=== PATIENT | female | born 1955 | race Caucasian/White ===

== ENCOUNTER 2020-04-01 08:51 | Outpatient (REF) | payer MEDICARE, MEDICAID, SELFPAY | END 2020-04-01 08:52 | disposition home or self-care (01) | LOC: HO.BBR 08:51 | PROVIDERS: PCP Internal Medicine; Visit Provider Internal Medicine Medical Oncology | DX: D75.1 Secondary polycythemia (principal) | CPT/HCPCS: 85018; 99195 ==

== ENCOUNTER 2020-05-03 08:52 | Outpatient (REF) | payer MEDICARE, MEDICAID, SELFPAY | END 2020-05-03 08:53 | disposition home or self-care (01) | LOC: HO.BBR 08:52 | PROVIDERS: PCP Internal Medicine; Visit Provider Internal Medicine Medical Oncology | DX: D75.1 Secondary polycythemia (principal) | CPT/HCPCS: 85018; 99195 ==

== ENCOUNTER 2020-06-02 08:46 | Outpatient (REF) | payer MEDICARE, MEDICAID, SELFPAY ==
[2020-06-02 09:26] LABS: MANUAL DIFF FLAG NO
[2020-06-02 09:32] LABS: Basophils Absolute Auto 0.1 X10*3/uL (0.0-0.2); Basophils Percent Auto 1.6 % (0-2); Eosinophils Percent Auto 0.5 % (0-4); Hematocrit 42.4 % (37-47); Hemoglobin 13.8 g/dl (12.0-16.0); Imm Gran Abs Auto 0.01 X10*3/uL (0.00-0.03); Imm Gran Pct Auto 0.2 % (0.0-0.4); Lymphocytes Absolute Auto 1.1 X10*3/uL (1.2-4.9); Lymphocytes Percent Auto 24.8 % (20-40); Mean Corpuscular HGB Conc 32.5 g/dl (31.0-35.0); Mean Corpuscular Hemoglobin 30.3 pg (27.0-33.0); Mean Platelet Volume 10.7 fL (9.4-12.3); Monocytes Absolute Auto 0.5 X10*3/uL (0.1-1.2); Monocytes Percent Auto 10.4 % (2-11); Neutrophils Absolute Auto 2.7 X10*3/uL (2.0-8.3); Neutrophils Percent Auto 62.5 % (45-73); Platelet Count 258 X10*3/uL (160-400); Red Blood Count 4.56 X10*6/uL (4.20-5.50); Red Cell Distribution Width 12.6 % (11.0-16.0); White Blood Count 4.3 X10*3/uL (4.8-10.8)
[2020-06-02 10:02] LABS: Alanine Aminotransferase 11 U/L (0-31); Albumin Level 3.7 g/dL (3.5-5.0); Alkaline Phosphatase 72 U/L (39-117); Anion Gap 11 (12-20); Aspartate Amino Transferase 17 U/L (5-31); Bilirubin Total 0.3 mg/dL (0.0-1.0); Blood Urea Nitrogen 20 mg/dL (9-16); Calcium 8.8 mg/dL (8.4-10.2); Carbon Dioxide 29 mmol/L (22-29); Chloride 103 mmol/L (96-108); Estimated Glomerular Filt Rate > 60; Glucose Random 79 mg/dL (60-115); Sodium 138 mmol/L (135-145); Total Protein 6.8 g/dL (6.5-8.0)
== END 2020-06-02 08:47 | disposition home or self-care (01) ==
LOC: HO.BBR 08:46
PROVIDERS: Visit Provider Internal Medicine Medical Oncology
DX: D75.1 Secondary polycythemia (principal)
CPT/HCPCS: 36415; 80053; 85014; 85018; 85025; 99195

== ENCOUNTER 2020-07-08 09:16 | Outpatient (REF) | payer MEDICARE, MEDICAID, SELFPAY | END 2020-07-08 09:17 | disposition home or self-care (01) | LOC: HO.BBR 09:16 | PROVIDERS: Visit Provider Internal Medicine Medical Oncology | DX: D75.1 Secondary polycythemia (principal) | CPT/HCPCS: 85014; 85018; 99195 ==

== ENCOUNTER 2020-08-15 12:14 | Emergency (ER) | payer MEDICARE, MEDICAID, SELFPAY ==
--- NOTE | ~2020-08-15 | XR_ITS ---
EXAMINATION: XR HAND, RIGHT CLINICAL INFORMATION: Dog bite. COMPARISON: None TECHNIQUE: PA, lateral, and oblique views of the right hand. FINDINGS: There is a 3 mm linear ossification adjacent to medial base first proximal phalanx, possible cortical avulsion of indeterminate age. There is no gas in the soft tissues or soft tissue swelling in this area. This may be correlated with patient's symptoms and clinical exam. There is subtle irregularity cortex lateral base proximal shaft index finger proximal phalanx. There may be a dressing adjacent to this area. Finding could represent impaction injury. There is no radiolucent fracture line or periostitis or destructive process. No gas tracking in soft tissues. No radiopaque soft tissue foreign body. The lateral view shows detached corticated dorsal spur fourth finger distal phalanx without overlying soft tissue swelling, likely chronic. The remainder of the bony structures are unremarkable. There is no acute or healing fracture or dislocation or destructive process. No periostitis. XR/XR hand RT min 3V IMPRESSION: 1. Fine linear cortical avulsion of indeterminate age medial base first proximal phalanx. 2. Suspect cortical impaction injury lateral aspect index finger proximal phalanx. 3. Because corticated spur dorsal base fourth finger distal phalanx, likely chronic.
--- NOTE | 2020-08-15 12:22 | ED.ANIMALBIT ---
HPI - Animal Bite General Chief Complaint: Animal Bite Stated Complaint: DOG BITE Time Seen by Provider: 08/15/20 12:22 Source: patient and EMS Mode of arrival: EMS Limitations: no limitations History of Present Illness HPI narrative: 64 y/o female with history of COPD, HLD, active smoker who presents to the ER today via EMS with a multiple dog bites. She states she was at a gas station when she was attacked by a pit bull that got loose out of a car from [place]. She put up her right hand to protect her face and the dog bit her hand and shook his head. She was able to get free and then he bit onto her right lower leg. Police were on scene. 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 She reports hand pain and lower leg pain. She is able to make a fist and move all of her fingers. She has multiple small superficial lesions on her right hand, 1 deep puncture wound and superficial lacerations to right lower leg. She does not know when her last Tdap was. MD complaint: animal bite Onset (ago): hour(s) (1) Animal: dog Description of animal: household pet Mechanism: bite Location - Extremities: right: hand (proximal 1st digit w/ puncture wound) and lower leg (lateral lower leg) Pain description: other (aching and sore ) Severity scale (1-10): 6 Context: unprovoked Associated symptoms: bleeding Treatments prior to arrival: wound dressing(s) Related Data Patient tetanus UTD: No Home Medications Medication Instructions Recorded Confirmed buspirone 0.5 tab PO BID 05/30/20 06/14/20 levothyroxine 1 tab PO DAILY 05/30/20 06/14/20 umeclidinium-vilanterol [Anoro 1 puff PO DAILY 05/30/20 06/14/20 Ellipta] Previous Rx's Medication Instructions Recorded pravastatin 20 mg tablet 20 mg PO DAILY #90 tab 05/04/20 pregabalin 200 mg capsule 200 mg PO BID #180 cap 05/04/20 duloxetine 60 mg capsule,delayed 60 mg PO DAILY #90 cap 06/21/20 release omeprazole 20 mg capsule,delayed 20 mg PO DAILY #90 cap 06/21/20 release trazodone 300 mg tablet 300 mg PO BEDTIME #90 tab 07/20/20 amoxicillin-pot clavulanate 1 tab PO Q12H #10 tab 08/15/20 [Augmentin] ibuprofen 600 mg PO Q8H PRN #20 tab 08/15/20 Allergies Allergy/AdvReac Type Severity Reaction Status Date / Time Codeine Phosphate Allergy Unknown flushed Verified 05/23/20 15:07 codeine [Codeine] AdvReac Mild VOMITING/RA Unverified 03/17/20 14:41 Review of Systems Review of Systems: Constitutional: No Fever, No Chills Cardiovascular: No Chest Pain, No SOB Respiratory: + Cough (chronic), No Sputum Gastrointestinal: No Nausea, No Vomiting Musculoskeletal: + joint pain, No Myalgias Skin: + Skin Lesions, No rash Neuro: No Weakness, No Numbness Psych: + Anxiety/Panic, No Depression Heme/Lymph: + Bruising, No Lymphadenopathy PMFSH Past Medical History Attestation statement: The following information was validated with the patient. Medical History Carpal tunnel syndrome of right wrist Constipation COPD (chronic obstructive pulmonary disease) Depression with anxiety Fibromyalgia Graves disease Hyperlipidemia Hypothyroidism Insomnia Mammogram normal Polycythemia PTSD (post-traumatic stress disorder) Tobacco dependency Warthin's tumor Surgical History (Updated 05/30/20 @ 11:33 by Andre Veliz MD) H/O colonoscopy History of total hysterectomy S/P STEPHANI-BSO Family History Family History (Updated 05/23/20 @ 15:18 by Jenny Cassidy, RMA, [facility]) Father Cancer Mother Stroke CAD (coronary artery disease) Brother No problems noted. Social History Social History (Updated 05/30/20 @ 11:29 by Tigist Gonzalez) Alcohol intake: former Smoking Status: Current every day smoker Cigarettes Per Day: 5 Smoked in Last 30 Days: Yes Use of substances other than those prescribed or required for medical reasons: No Advance Directives: No Advance Directives Information Provided: No Physical Exam Vital Signs: Vital Signs: Last Vital Signs Temp 97.2 F 08/15/20 12:27 Pulse 77 08/15/20 12:27 Resp 16 08/15/20 12:27 BP 130/61 08/15/20 12:27 Pulse Ox 96 08/15/20 12:27 Body Mass Index 26.3 Appearance: Alert. Oriented X3. No acute distress. HEENT: normal inspection Respiratory: No respiratory distress. Congested cough Skin: Skin warm and dry. Normal skin color. Normal skin turgor. No rashes. 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 <1 cm puncutre wound on dorsal aspect of right hand between proximal index and middle finger. RLE with eccymosis and superficial lacerations to right lateral lower leg. No bony tenderness, no ankle involvement. Neuro: Oriented X 3. No motor deficit. No sensory deficit. Normal gait. Course Course Course Narrative: 64 y/o female presenting with multiple dog bites from unprovoked pit bull. Will get hand XR for further evaluation, loosely suture deep puncture wound, give Tdap and pain control here. Wound have been extensively cleaned with soap and water, betadine and irrigated. Reevaluation(s) Reevaluation #1: XR showing Fine linear cortical avulsion of indeterminate age medial base first proximal phalanx. 2. Suspect cortical impaction injury lateral aspect index finger proximal phalanx. Will place in finger splint and refer to ortho. Discussed Rabies vaccination with the patient and she would like to hold off for now and confirm with Animal Control that the dog is infact up to date on shots. If it is not then she will come back later today and get Rabies vaccine. Discharge Plan Discharge Clinical Impression: Dog bite Qualifiers: Encounter type: initial encounter Qualified Code(s): W54.0XXA - Bitten by dog, initial encounter Patient Disposition: Home, Self-Care Instructions: Animal Bite (ED), Finger Fracture (ED) Additional Instructions: X-ray shows a tiny avulsion fracture at the base of your inde finger on your right hand. Wear the finger splint to allow healing. Limit use of this finger. Follow up with Orthopedics in 1 week. Take the antibiotic as directed to help prevent infection. Recommend topical triple antibiotic ointment to the wounds 2 times per day. Keep clean and covered with a sterile dressing. Monitor for signs of infection including redness, swelling, drainage of pus. Come back to the ER or see your doctor in 10 days to remove the stitch in your hand. Do not get your hand wet today. After 24 hours you can briefly wash with soap and water, then pat dry. Use ice several times per day as needed for pain and swelling. Take Tylenol and/or Motrin as needed for pain. If you find out that the dog not not up to date on his vaccines come back to the ER within 24 hours to start Rabies vaccination process. Prescriptions: New amoxicillin-pot clavulanate [Augmentin] 875-125 mg tablet 1 tab PO Q12H Qty: 10 RF: 0 ibuprofen 600 mg tablet 600 mg PO Q8H PRN (Reason: pain) Qty: 20 RF: 0 No Action pregabalin 200 mg capsule 200 mg PO BID Qty: 180 RF: 1 pravastatin 20 mg tablet 20 mg PO DAILY Qty: 90 RF: 3 duloxetine 60 mg capsule,delayed release(DR/EC) 60 mg PO DAILY Qty: 90 RF: 3 omeprazole 20 mg capsule,delayed release(DR/EC) 20 mg PO DAILY Qty: 90 RF: 3 trazodone 300 mg tablet 300 mg PO BEDTIME Qty: 90 RF: 3 buspirone 10 mg tablet 0.5 tab PO BID RF: 0 levothyroxine 112 mcg tablet 1 tab PO DAILY RF: 0 Anoro Ellipta 62.5-25 mcg/actuation blister with device 1 puff PO DAILY RF: 0 Referrals: Fernando Patricia MD [Physician] - 1 week (finger fracture)
[2020-08-15 12:27] VITALS: BP 130/61; BP 132/60; PULSE 77; PULSE 80; RESP 16; TEMP 36.2; O2SAT 96; BMI 26.3
[2020-08-15] MEDS: Acetaminophen 325 MG TABLET 975 MG PO (12:52)
[2020-08-15] MEDS: Amoxicillin/Potassium Clav 875 MG TABLET PO (12:53)
[2020-08-15] MEDS: Ibuprofen 600 MG TABLET PO (12:53)
[2020-08-15] MEDS: Lidocaine HCl 2 % MPF 5 ML VIAL INFILTRATI (12:54)
== END 2020-08-15 14:28 | disposition home or self-care (01) ==
LOC: HO.ED 12:37
PROVIDERS: Emergency Provider Emergency Medicine; PCP Internal Medicine
DX: S62.610A Displaced fracture of proximal phalanx of right index finger, initial encounter for closed fracture (principal); S61.451A Open bite of right hand, initial encounter; S80.871A Other superficial bite, right lower leg, initial encounter; W54.0XXA Bitten by dog, initial encounter; Y93.89 Activity, other specified; Y92.524 Gas station as the place of occurrence of the external cause; Y99.9 Unspecified external cause status
CPT/HCPCS: 12001; 29130; 73130; 90471; 90715; 99283; 99284

== ENCOUNTER 2020-08-18 09:51 | Outpatient (REF) | payer MEDICARE, MEDICAID, SELFPAY | END 2020-08-18 09:52 | disposition home or self-care (01) | LOC: HO.BBR 09:51 | PROVIDERS: Visit Provider Internal Medicine Medical Oncology | DX: D75.1 Secondary polycythemia (principal) | CPT/HCPCS: 36415; 85014; 85018; 99195 ==

== ENCOUNTER → 2020-08-19 09:13 | Outpatient (BNVA) | payer MEDICARE, MEDICAID, SELFPAY | PROVIDERS: PCP Internal Medicine; Visit Provider Physician Assistant | DX: Z13.89 Encounter for screening for other disorder (principal) | CPT/HCPCS: 99202 ==

== ENCOUNTER 2020-09-15 08:44 | Outpatient (REF) | payer MEDICARE, MEDICAID, SELFPAY | END 2020-09-15 08:45 | disposition home or self-care (01) | LOC: HO.BBR 08:44 | PROVIDERS: Visit Provider Internal Medicine Medical Oncology | DX: D75.1 Secondary polycythemia (principal) | CPT/HCPCS: 85014; 85018; 99195 ==

== ENCOUNTER 2020-09-30 08:25 | Outpatient (REF) | payer MEDICARE, MEDICAID, SELFPAY ==
--- NOTE | ~2020-09-30 | XR_ITS ---
EXAMINATION: XR HAND, RIGHT CLINICAL INFORMATION: Fracture COMPARISON: Previous x-ray August 2020 TECHNIQUE: PA, lateral, and oblique views of the right hand. FINDINGS: There is question evulsion fracture of the base of the proximal phalanx of the thumb and appears unchanged. There is an area of lucency and sclerosis in the radial side of the proximal phalanx of the second finger questionable for changes related to trauma. No other fracture is seen. There is arthritis at the first LONG-TERM joint and fourth DIP joint. Joint spaces are otherwise normal. Soft tissues are normal. XR/XR hand RT min 3V IMPRESSION: No change in small avulsion fracture of the base of the proximal phalanx of the thumb and injury to the base of the proximal phalanx of the second finger from August 2020 exam.
== END 2020-09-30 08:26 | disposition home or self-care (01) ==
LOC: HO.HOSX 08:25
PROVIDERS: Visit Provider Physician Assistant
DX: S62.630D Displaced fracture of distal phalanx of right index finger, subsequent encounter for fracture with routine healing (principal)
CPT/HCPCS: 73130; 99212

== ENCOUNTER 2020-10-19 09:48 | Outpatient (REF) | payer MEDICARE, MEDICAID, SELFPAY | END 2020-10-19 09:49 | disposition home or self-care (01) | LOC: HO.BBR 09:48 | PROVIDERS: Visit Provider Internal Medicine Medical Oncology | DX: D75.1 Secondary polycythemia (principal) | CPT/HCPCS: 85018 ==

== ENCOUNTER → 2020-12-09 09:59 | Outpatient (BNV) | payer MEDICARE, MEDICAID, SELFPAY | PROVIDERS: Visit Provider Internal Medicine Medical Oncology | DX: D75.1 Secondary polycythemia (principal); I82.401 Acute embolism and thrombosis of unspecified deep veins of right lower extremity; Z79.01 Long term (current) use of anticoagulants; F17.210 Nicotine dependence, cigarettes, uncomplicated | CPT/HCPCS: 99212; 99213; 99214; G2252 ==

== ENCOUNTER 2021-02-27 09:33 | Outpatient (REF) | payer MEDICARE, MEDICAID, SELFPAY ==
[2021-02-27 11:01] LABS: MANUAL DIFF FLAG NO
[2021-02-27 11:17] LABS: Basophils Absolute Auto 0.1 X10*3/uL (0.0-0.2); Basophils Percent Auto 1.1 % (0-2); Eosinophils Percent Auto 0.5 % (0-4); Hematocrit 42.2 % (37-47); Hemoglobin 13.1 g/dl (12.0-16.0); Imm Gran Abs Auto 0.01 X10*3/uL (0.00-0.03); Imm Gran Pct Auto 0.2 % (0.0-0.4); Lymphocytes Absolute Auto 1.5 X10*3/uL (1.2-4.9); Lymphocytes Percent Auto 27.3 % (20-40); Mean Corpuscular Hemoglobin 24.8 pg (27.0-33.0); Mean Corpuscular Volume 79.9 fL (80-98); Mean Platelet Volume 11.4 fL (9.4-12.3); Monocytes Absolute Auto 0.6 X10*3/uL (0.1-1.2); Monocytes Percent Auto 10.1 % (2-11); Neutrophils Absolute Auto 3.3 X10*3/uL (2.0-8.3); Neutrophils Percent Auto 60.8 % (45-73); Platelet Count 273 X10*3/uL (160-400); Red Blood Count 5.28 X10*6/uL (4.20-5.50); Red Cell Distribution Width 19.7 % (11.0-16.0); White Blood Count 5.5 X10*3/uL (4.8-10.8)
[2021-02-27 11:54] LABS: Alanine Aminotransferase 15 U/L (0-31); Albumin Level 3.9 g/dL (3.5-5.0); Alkaline Phosphatase 83 U/L (39-117); Anion Gap 14 (12-20); Aspartate Amino Transferase 20 U/L (5-31); Bilirubin Total 0.2 mg/dL (0.0-1.0); Blood Urea Nitrogen 12 mg/dL (9-16); Calcium 9.1 mg/dL (8.4-10.2); Carbon Dioxide 26 mmol/L (22-29); Chloride 103 mmol/L (96-108); Cholesterol 186 mg/dL; Estimated Glomerular Filt Rate 57; Glucose Fasting 94 mg/dL (60-99); HDL Cholesterol 47 mg/dL; LDL Cholesterol Calculated 117 mg/dl; Potassium 4.9 mmol/L (3.3-5.1); Sodium 138 mmol/L (135-145); Total Protein 7.1 g/dL (6.5-8.0); Triglycerides 112 mg/dL
[2021-02-27 11:57] LABS: TSH reflex Free T4 0.78 uIU/mL (0.32-4.0)
== END 2021-02-27 09:34 | disposition home or self-care (01) ==
LOC: HO.HMGCLDS 09:33
PROVIDERS: PCP Internal Medicine; Visit Provider Internal Medicine Medical Oncology
DX: D75.1 Secondary polycythemia (principal); E03.9 Hypothyroidism, unspecified; E78.5 Hyperlipidemia, unspecified
CPT/HCPCS: 36415; 80053; 80061; 84443; 85025

== ENCOUNTER 2021-05-01 12:47 | Outpatient (REF) | payer MEDICARE, MEDICAID, SELFPAY ==
--- NOTE | ~2021-05-01 | CT_ITS ---
EXAMINATION: CT CHEST SCREENING CLINICAL INFORMATION: 47 pack year history. Current smoker. COMPARISON: Previous chest CT scans most recent December 2019 TECHNIQUE: Multidetector volumetric CT imaging of the chest is performed without contrast using low dose technique. Additional 2D coronal and sagittal reformatted images and axial 3D maximum intensity projection (MIP) images are generated on the CT workstation. This CT examination was performed using dose optimization techniques as appropriate, variously including the following: *Automated exposure control *Adjustment of mA and/or kV according to patient size (this includes techniques or standardized protocols for targeted exams where dose is matched to indication/reason for exam; i.e. extremities or head) *Use of iterative reconstruction technique DLP: 78 mGy-cm FINDINGS: LUNGS: There is evidence of mild paraseptal emphysema. There are increased peripheral interstitial markings and peripheral attenuation questionable for mild interstitial lung disease. This is unchanged. There are small pulmonary nodules or micronodules that appear unchanged. The largest measures 3 mm adjacent left pleural fissure axial 250 series 5. No new pulmonary nodule is seen. There is subsegmental atelectasis at the lung bases. MEDIASTINUM: There is a small esophageal hernia. This probably represents a hiatal hernia. The mediastinum is otherwise normal. PLEURA: There is no pleural effusion. There is fatty area of the left posterior costophrenic angle questionable for eventration of the left hemidiaphragm versus small diaphragmatic hernia containing fat. AXILLA: No lymphadenopathy. UPPER ABDOMEN: Unremarkable OSSEOUS STRUCTURES: There are degenerative changes of the spine. CT/CT lung screening IMPRESSION: Mild emphysema. Stable small pulmonary nodules. ASSESSMENT: Lung-RADS category 2: Benign RECOMMENDATION: Annual low-dose chest CT follow-up recommended.
== END 2021-05-01 12:48 | disposition home or self-care (01) ==
LOC: HO.CT 12:47
PROVIDERS: Visit Provider Physician Assistant Medical
DX: Z12.2 Encounter for screening for malignant neoplasm of respiratory organs (principal); Z87.891 Personal history of nicotine dependence
CPT/HCPCS: 71271

== ENCOUNTER 2021-05-08 14:15 | Emergency (ER) | payer MEDICARE, MEDICAID, SELFPAY ==
--- NOTE | ~2021-05-08 | CT_ITS ---
EXAMINATION: CT ANGIOGRAM OF THE CHEST WITH AND WITHOUT CONTRAST (CT PULMONARY ANGIOGRAM FOR PE) CLINICAL INFORMATION: Reason for Exam syncope. PE? COMPARISON: CT 05/01/2021 TECHNIQUE: Prior to contrast administration, noncontrast localization images were obtained. Subsequently, multidetector volumetric imaging was performed from the thoracic inlet to below the diaphragms following the administration of 75 mL Omnipaque 350 intravenous contrast. No contrast reaction reported Sagittal, coronal, and MIP oblique sagittal reformatted images were obtained on the CT workstation, uploaded to PACS, and reviewed. This CT examination was performed using dose optimization techniques as appropriate, variously including the following: *Automated exposure control *Adjustment of mA and/or kV according to patient size (this includes techniques or standardized protocols for targeted exams where dose is matched to indication/reason for exam; i.e. extremities or head) *Use of iterative reconstruction technique Total exam dose-length product 271 mGy-cm FINDINGS: QUALITY OF STUDY/CONTRAST BOLUS: Suboptimal. There is extensive motion artifact and contrast under filling of the distal pulmonary arteries. PULMONARY ARTERIES: No central pulmonary embolus. Motion artifact limits evaluation for segmental and subsegmental pulmonary emboli but none are seen. THORACIC AORTA: No aneurysm or dissection. Mild irregular calcified and noncalcified atherosclerotic changes, for example in the distal thoracic aorta, image 323/500. LUNG: Motion artifact. There is central bronchial wall thickening. Atelectasis. No focal consolidation or mass. PLEURA: No pleural effusion or pneumothorax. MEDIASTINUM: Normal heart size. No pericardial effusion. No hilar or mediastinal lymphadenopathy. No evidence of septal bowing or right heart strain. CHEST WALL/AXILLA: No axillary or internal mammary lymphadenopathy. OSSEOUS STRUCTURES: No acute or suspicious osseous abnormality. UPPER ABDOMEN: Small hiatal hernia. There is some reflux of contrast suggesting elevated right heart pressures. CT/CT angio chest PE protocol IMPRESSION: Limited study due to motion artifact. No central pulmonary embolus seen. Central bronchial wall thickening. VTE: negative
--- NOTE | ~2021-05-08 | CT_ITS ---
EXAMINATION: CT HEAD WITHOUT CONTRAST CT CERVICAL SPINE WITHOUT CONTRAST CLINICAL INFORMATION: Syncope. COMPARISON: CT cervical spine dated from 10/16/2018. TECHNIQUE: Contiguous axial imaging was performed from the skull base to vertex without intravenous administration of contrast. Contiguous axial imaging was performed from the upper chest through the skull base without intravenous administration of contrast. Coronal and sagittal reformats were obtained at the acquisition workstation. This CT examination was performed using dose optimization techniques as appropriate, variously including the following: *Automated exposure control *Adjustment of mA and/or kV according to patient size (this includes techniques or standardized protocols for targeted exams where dose is matched to indication/reason for exam; i.e. extremities or head) *Use of iterative reconstruction technique DLP: 255 mGy-cm FINDINGS: Head: There is no evidence of acute intracranial hemorrhage or edematous territorial infarction. There is no abnormal attenuation within the brain parenchyma. Ocasio-white matter differentiation is preserved. The ventricles are normal in size and configuration. No evidence for obstructive hydrocephalus. No abnormal mass effect or midline shift. No extra-axial fluid collections. Very mild soft tissue thickening/contusion in the right parietal scalp on image 56 of series 13. No acute osseous abnormalities. The mastoid air cells and paranasal sinuses are clear. Cervical Spine: The atlantooccipital and atlantoaxial articulations remain well aligned. Straightening of the normal cervical lordosis. Otherwise, there is anatomic alignment of the vertebral bodies and posterior elements. No evidence of acute fracture or subluxation. Mild multilevel cervical spondylosis with disc space narrowing and prominent anterior osteophytes. There is no prevertebral soft tissue swelling. Indeterminate surgical clips are identified in the cervical soft tissues and parotid regions bilaterally. The remaining cervical soft tissues are normal in appearance. The thyroid gland is markedly atrophic versus surgically removed. The lung apices demonstrate mild right paraseptal emphysema and right apical pleural thickening/scarring. CT/CT cervical spine wo con IMPRESSION: No acute intracranial pathology. No acute cervical traumatic sequela. Mild cervical spondylosis. Indeterminate postsurgical changes in the soft tissues of the neck bilaterally with multiple surgical clips. Correlate with prior surgical history.
[2021-05-08 14:34] VITALS: BP 119/72; PULSE 76; RESP 17; TEMP 36.4; O2SAT 95; BMI 28.5
--- NOTE | 2021-05-08 14:41 | ECG_ITS ---
Test Reason : Syncope Blood Pressure : / mmHG Vent. Rate : 077 BPM Atrial Rate : 077 BPM P-R Int : 174 ms QRS Dur : 080 ms QT Int : 384 ms P-R-T Axes : 073 015 048 degrees QTc Int : 434 ms Normal sinus rhythm RSR' or QR pattern in V1 suggests right ventricular conduction delay Otherwise normal ECG No previous ECGs available Referred By: Generic ED Physician Electronically Signed By:BRUNO ISSA MD
[2021-05-08 16:31] LABS: MANUAL DIFF FLAG NO
[2021-05-08 16:33] LABS: Basophils Absolute Auto 0.1 X10*3/uL (0.0-0.2); Basophils Percent Auto 1.2 % (0-2); Eosinophils Absolute Auto 0.1 X10*3/uL (0.0-0.4); Eosinophils Percent Auto 1.6 % (0-4); Hematocrit 40.3 % (37.0-47.0); Hemoglobin 12.8 g/dl (12.0-16.0); Imm Gran Abs Auto 0.01 X10*3/uL (0.00-0.03); Imm Gran Pct Auto 0.2 % (0.0-0.4); Lymphocytes Absolute Auto 2.2 X10*3/uL (1.2-4.9); Lymphocytes Percent Auto 44.6 % (20-40); Mean Corpuscular HGB Conc 31.8 g/dl (31.0-35.0); Mean Corpuscular Hemoglobin 26.4 pg (27.0-33.0); Mean Corpuscular Volume 83.1 fL (80.0-98.0); Mean Platelet Volume 10.7 fL (9.4-12.3); Monocytes Absolute Auto 0.5 X10*3/uL (0.1-1.2); Monocytes Percent Auto 10.8 % (2-11); Neutrophils Absolute Auto 2.1 x10*3/uL (2.0-8.3); Neutrophils Percent Auto 41.6 % (45-73); Platelet Count 280 X10*3/uL (160-400); Red Blood Count 4.85 X10*6/uL (4.20-5.50); Red Cell Distribution Width 16.7 % (11.0-16.0)
[2021-05-08 16:50] LABS: Anion Gap 12 (12-20); Blood Urea Nitrogen 13 mg/dL (9-16); Carbon Dioxide 26 mmol/L (22-29); Chloride 105 mmol/L (96-108); Creatinine Clr Calc Pharmacy 60.5; Estimated Glomerular Filt Rate 53; Glucose Random 89 mg/dL (60-115); Potassium 4.4 mmol/L (3.3-5.1); Sodium 139 mmol/L (135-145)
[2021-05-08 16:57] LABS: Troponin-I High Sensitivity < 3.5 ng/L (<3.5-17.0)
[2021-05-08 19:59] VITALS: BP 111/48; PULSE 64
[2021-05-08 20:00] VITALS: BP 101/54; BP 126/63; PULSE 72; PULSE 75
[2021-05-08] MEDS: iohexoL 350 MG/ML 100 ML INFUS..BTL IV (20:39)
--- NOTE | 2021-05-08 21:04 | ED.SYNCOPE ---
HPI - Syncope General Chief Complaint: Syncope Stated Complaint: passing out hit head on chair on blood thinners Time Seen by Provider: 05/08/21 19:43 History of Present Illness HPI narrative: Patient presents to ED for evaluation. Patient had a syncopal episode on Saturday which caused her to hit her head. Patient states she was sent by PCP for evaluation. Patient states she has been asymptomatic since syncopal episode this past Saturday. Patient will like to be discharged immediately but was agreeable to get evaluated medically. Presently patient denies any chest pain, shortness of breath, abdominal pain, dizziness, neck pain, headache, coughing up blood, vomiting blood, blood in stool, back pain, or any pain in extremities. Patient states she has known DVT in right lower extremity. Patient is on Eliquis for the past 3 weeks. Related Data Previous Rx's Medication Instructions Recorded pravastatin 20 mg tablet 20 mg PO DAILY #90 tab 05/04/20 pregabalin 200 mg capsule 200 mg PO BID #180 cap 05/04/20 duloxetine 60 mg capsule,delayed 60 mg PO DAILY #90 cap 06/21/20 release omeprazole 20 mg capsule,delayed 20 mg PO DAILY #90 cap 06/21/20 release trazodone 300 mg tablet 300 mg PO BEDTIME #90 tab 07/20/20 ibuprofen 600 mg tablet 600 mg PO Q8H PRN #20 tab 08/15/20 levothyroxine 112 mcg tablet 112 mcg PO DAILY #90 tab 09/21/20 buspirone 10 mg tablet 10 mg PO BID #180 tab 10/24/20 apixaban 5 mg tablet (Eliquis) 5 mg PO BID #180 tab 04/12/21 umeclidinium 62.5 mcg-vilanterol 1 ea PO DAILY #180 ea 04/13/21 25 mcg/actuation powdr for inhalation (Anoro Ellipta) Allergies Allergy/AdvReac Type Severity Reaction Status Date / Time Codeine Phosphate Allergy Unknown flushed Verified 04/27/21 12:40 codeine [Codeine] AdvReac Mild VOMITING/RA Verified 04/27/21 12:40 SH Review of Systems Review of Systems: Yes all other systems are reviewed and are negative Constitutional: Constitutional: Reports as per HPI and Reports no additional constitutional complaints Eyes: Eyes: Reports as per HPI and Reports no additional eye complaints ENT: Reports system reviewed and no additional complaints, except as documented and Reports as per HPI Cardiovascular: Cardiovascular: Reports as per HPI and Reports no additional cardiovascular complaints Respiratory: Respiratory: Reports as per HPI and Reports no additional respiratory complaints Gastrointestinal: Gastrointestinal: Reports as per HPI and Reports no additional gastrointestinal complaints Genitourinary: Genitourinary: Reports no additional female genitourinary complaints and Reports as per HPI Musculoskeletal: Musculoskeletal: Reports no additional musculoskeletal complaints and Reports as per HPI Neurologic: Reports system reviewed and no additional complaints, except as documented and Reports as per HPI Psychiatric: Psychiatric: Reports no additional psychiatric complaints and Reports as per HPI [facility] Past Medical History Medical History (Updated 05/09/21 @ 01:40 by STEPHANIE Gómez) Annual physical exam Annual physical exam Carpal tunnel syndrome of right wrist Colon polyp Constipation COPD (chronic obstructive pulmonary disease) Depression with anxiety DVT (deep venous thrombosis) Fibromyalgia Graves disease Hyperlipidemia Hypothyroidism Insomnia Mammogram normal Polycythemia PTSD (post-traumatic stress disorder) Tobacco dependency Warthin's tumor Surgical History H/O colonoscopy History of total hysterectomy S/P STEPHANI-BSO Family History Family History Father Cancer Mother Stroke CAD (coronary artery disease) Brother No problems noted. Other Substance use disorder Social History Social History Housing: House Alcohol intake: former Patient Tobacco Use Status: Current everyday Tobacco user Cigarette Packs Per Day: 1 Years Smoked: 47 years e-Cigarette/Vaping Use: Never Used Advance Directives: No Advance Directives Information Provided: No Current occupational status: disabled Physical Exam Vital Signs: Vital Signs: Last Vital Signs Temp 97.5 F 05/08/21 14:34 Pulse 75 05/08/21 20:00 Resp 17 05/08/21 14:34 BP 126/63 05/08/21 20:00 Pulse Ox 95 05/08/21 14:34 Body Mass Index 28.5 Const: General: cooperative, healthy appearing, comfortable, no acute distress, well developed, alert, awake and Physically active Orientation/consciousness: patient oriented x3 HENMT: Head: Yes normal to inspection, Yes No palpable skull fracture present, Yes normocephalic, Yes atraumatic and No abrasion Eyes: General: appearance normal, both eyes and all related structures Neck: Neck: Yes normal visual inspection, Yes full ROM, Yes no lymphadenopathy, Yes no meningeal signs, Yes trachea midline, Yes supple and No tender Chest: Chest palpation & inspection: normal inspection of the chest and normal palpation of entire chest wall Breast/axilla inspection: normal inspection of the breasts Resp: Effort & Inspection: normal respiratory effort and able to speak in complete sentences Auscultation: clear to auscultation bilaterally Cardio: Jugular venous distension: no JVD Heart sounds: S1 normal heart sound present and S2 normal heart sound present GI: Inspection: Yes normal to inspection and No abdominal wall ecchymosis Palpation (GI): Soft to palpation, not firm, nontender, no guarding and not rigid : General: No CVA tenderness and Yes no CVA tenderness Back/Spine/Pelvis: Back: no CVA tenderness, No CVA tenderness and No back tenderness Skin: General skin exam: no rashes or lesions noted and elasticity normal Neuro: Other: Negative slurred speech. Negative facial droop. Negative pronator drift. All extremities equal strength 5+. [id number] rapid hand movement intact General: patient oriented x3, no meningeal signs and CN's II-XI intact bilaterally Extrem: General: Yes normal to inspection and Yes full ROM Knee images: 1. Positive for mild calf tenderness and mild swelling. Patient has known history of DVT as per patient. Patient states DVT has been present for the past 3 weeks. Patient is on Eliquis. Psych: Appearance: grossly normal, well kempt and not disheveled Course Course Course Narrative: Patient will have EKG, labs, orthostatics, and imaging. Reevaluation(s) Reevaluation #1: Chest CT came back negative for PE. EKG negative STEMI. Troponin negative and syncopized 4 days ago. Orthostatics negative. Head CT cervical spine normal. Rest of labs normal. Discussed case with hospitalist for possible admission. Hospitalists Dr. De La Vega states syncopal episode occurred 4 days ago and patient could be discharged with outpatient Holter monitor and echocardiogram. Patient lifts all the way in [facility] and will wait till the morning for her friend to come pick her up. Patient has been asymptomatic since syncopal episode that occurred this past Saturday. Patient has normal gait. Negative any neuro deficits. Time: 01:37 MDM - Syncope MDM Narrative Medical decision making narrative: Syncope on Saturday Lab Data Result diagrams: 05/08/21 16:25 05/08/21 16:25 Labs: Lab Results 05/08/21 05/08/21 05/08/21 Range/Units 16:25 16:25 16:25 WBC 5.0 (4.8-10.8) X10*3/uL RBC 4.85 (4.20-5.50) X10*6/uL Hgb 12.8 (12.0-16.0) g/dl Hct 40.3 (37.0-47.0) % MCV 83.1 (80.0-98.0) fL MCH 26.4 L (27.0-33.0) pg MCHC 31.8 (31.0-35.0) g/dl RDW 16.7 H (11.0-16.0) % Plt Count 280 (160-400) X10*3/uL MPV 10.7 (9.4-12.3) fL Immature Gran % (Auto) 0.2 (0.0-0.4) % Neut % (Auto) 41.6 L (45-73) % Lymph % (Auto) 44.6 H (20-40) % Stearns % (Auto) 10.8 (2-11) % Eos % (Auto) 1.6 (0-4) % Baso % (Auto) 1.2 (0-2) % Lymph # (Auto) 2.2 (1.2-4.9) X10*3/uL Stearns # (Auto) 0.5 (0.1-1.2) X10*3/uL Eos # (Auto) 0.1 (0.0-0.4) X10*3/uL Baso # (Auto) 0.1 (0.0-0.2) X10*3/uL Abs Immat Gran (auto) 0.01 (0.00-0.03) X10*3/uL Absolute Neuts (auto) 2.1 (2.0-8.3) x10*3/uL Absolute Nucleated RBC 0.000 (0.0-0.012) X10*3/uL Nucleated RBC % (auto) 0.0 (0.0-0.2) /100WBC Sodium 139 (135-145) mmol/L Potassium 4.4 (3.3-5.1) mmol/L Chloride 105 (96-108) mmol/L Carbon Dioxide 26 (22-29) mmol/L Anion Gap 12 (12-20) BUN 13 (9-16) mg/dL Creatinine 1.05 (0.5-1.4) mg/dL Estim Creat Clear Calc 60.5 Estimated GFR 53 Random Glucose 89 (60-115) mg/dL Calcium 9.0 (8.4-10.2) mg/dL Troponin I High Sens < 3.5 (<3.5-17.0) ng/L ECG Data Interpretation: Normal sinus rhythm. Normal EKG. Ventricular rate 77. Pr interval 174. QRS 80. QTC 434. Negative STEMI Discharge Plan Discharge Clinical Impression: Syncope Patient Disposition: Home, Self-Care Instructions: Syncope (ED) Additional Instructions: You need to follow-up with your feltmaker and weigher for outpatient Holter monitoring and echocardiogram. Return to the ED for any chest pain, shortness of breath, slurred speech, paralysis involve extremities, facial droop, weakness, dizziness, another syncopal episodes, any other concerning symptoms. Please do not drive any vehicle until follow-up with primary care provider. Prescriptions: No Action pregabalin 200 mg capsule 200 mg PO BID Qty: 180 RF: 1 pravastatin 20 mg tablet 20 mg PO DAILY Qty: 90 RF: 3 duloxetine 60 mg capsule,delayed release(DR/EC) 60 mg PO DAILY Qty: 90 RF: 3 omeprazole 20 mg capsule,delayed release(DR/EC) 20 mg PO DAILY Qty: 90 RF: 3 trazodone 300 mg tablet 300 mg PO BEDTIME Qty: 90 RF: 3 levothyroxine 112 mcg tablet 112 mcg PO DAILY Qty: 90 RF: 3 Eliquis 5 mg tablet 5 mg PO BID Qty: 180 RF: 0 Anoro Ellipta 62.5-25 mcg/actuation blister with device 1 ea PO DAILY Qty: 180 RF: 3 ibuprofen 600 mg tablet 600 mg PO Q8H PRN (Reason: pain) Qty: 20 RF: 0 buspirone 10 mg tablet 10 mg PO BID Qty: 180 RF: 3 Stand Alone Forms: Work/School Release Print Language: Russian
[2021-05-09 05:42] VITALS: BP 128/65; PULSE 76; RESP 18; O2SAT 97
== END 2021-05-09 06:50 | disposition home or self-care (01) ==
PROVIDERS: Emergency Provider Internal Medicine; PCP Internal Medicine
DX: R55 Syncope and collapse (principal); M54.2 Cervicalgia; R51.9 Headache, unspecified; F17.210 Nicotine dependence, cigarettes, uncomplicated; Z71.6 Tobacco abuse counseling; Z79.01 Long term (current) use of anticoagulants; Z79.899 Other long term (current) drug therapy
CPT/HCPCS: 36415; 70450; 71275; 72125; 80048; 84484; 85025; 93005; 99284; Q9967

== ENCOUNTER → 2021-06-06 10:47 | Outpatient (REF) | payer MEDICARE, MEDICAID, SELFPAY ==
--- NOTE | 2021-06-06 10:51 | HM_ITS ---
Total monitoring time 2 days and 6 hours. Underlying rhythm is sinus. Minimum heart rate 57/Min. Maximum 129/Min. Average 77/Min. No atrial fibrillation or flutter or AV blocks or pauses. Rare supraventricular ectopy with minimal burden; 3 very brief runs, longest 9 beats. Extremely rare ventricular ectopy. No sustained arrhythmias. No patient events. MTDD
== END ==
LOC: HO.CARD 10:47
PROVIDERS: Visit Provider Internal Medicine
DX: R55 Syncope and collapse (principal)
CPT/HCPCS: 93242

== ENCOUNTER 2021-07-04 07:48 | Outpatient (REF) | payer MEDICARE, MEDICAID, SELFPAY ==
--- NOTE | 2021-07-04 07:51 | EEG_ITS ---
The waking background activity consists of the low voltage posterior 10 hertz alpha frequency symmetrically and attenuates well with eye opening while low-voltage fast frequencies predominant anteriorly. Photic stimulation is without activation. No focal, lateralizing, or paroxysmal discharges seen. IMPRESSION: This waking EEG is within normal limits. MD MIRYAM Edwards/MICHELLE / [id number]
== END 2021-07-04 07:49 | disposition home or self-care (01) ==
LOC: HO.NEURO 07:48
PROVIDERS: Visit Provider Internal Medicine
DX: R55 Syncope and collapse (principal)
CPT/HCPCS: 95816

== ENCOUNTER 2021-12-26 11:21 | Outpatient (REF) | payer MEDICARE, MEDICAID, SELFPAY ==
--- NOTE | ~2021-12-26 | MM_ITS ---
EXAMINATION: MM SCREENING DIGITAL BREAST TOMOSYNTHESIS, BILATERAL CLINICAL INFORMATION: Screening. Asymptomatic. The lifetime risk of breast cancer based on the Tyrer-Cuzick Model is 11%. COMPARISON: Mammography: 05/04/2019, 10/14/2018, 04/29/2018, 01/23/2017, 05/15/2011 TECHNIQUE: Digital breast tomosynthesis is performed in both the craniocaudal and mediolateral oblique views along with computer-aided detection (CAD). Synthesized 2D images are generated from the tomosynthesis. FINDINGS: The breasts are almost entirely fatty (ACR BI-RADS breast composition Category a). There are no significant masses, abnormal calcifications, or other abnormalities. The skin contours are smooth. Background stromal markings are normal. MM/MM tomosynthesis screening BI IMPRESSION: No mammographic evidence of malignancy. ASSESSMENT: BI-RADS 1: Negative RECOMMENDATION: Routine annual mammography screening. This patient's information was entered into a reminder system with a target due date for their next mammogram.
== END 2021-12-26 11:22 | disposition home or self-care (01) ==
LOC: HO.MAMMO 11:21
PROVIDERS: PCP Internal Medicine; Visit Provider Internal Medicine
DX: Z12.31 Encounter for screening mammogram for malignant neoplasm of breast (principal)
CPT/HCPCS: 77063; 77067

== ENCOUNTER 2022-05-04 11:18 | Outpatient (REF) | payer MEDICARE, MEDICAID, SELFPAY ==
[2022-05-04 13:59] LABS: MANUAL DIFF FLAG NO
[2022-05-04 14:04] LABS: Basophils Absolute Auto 0.1 X10*3/uL (0.0-0.2); Basophils Percent Auto 1.1 % (0-2); Eosinophils Percent Auto 0.2 % (0-4); Hematocrit 46.3 % (37.0-47.0); Hemoglobin 14.8 g/dl (12.0-16.0); Imm Gran Abs Auto 0.01 X10*3/uL (0.00-0.03); Imm Gran Pct Auto 0.2 % (0.0-0.4); Lymphocytes Absolute Auto 1.4 X10*3/uL (1.2-4.9); Lymphocytes Percent Auto 23.1 % (20-40); Mean Corpuscular Hemoglobin 27.5 pg (27.0-33.0); Mean Corpuscular Volume 85.9 fL (80.0-98.0); Mean Platelet Volume 11.3 fL (9.4-12.3); Monocytes Absolute Auto 0.5 X10*3/uL (0.1-1.2); Monocytes Percent Auto 7.7 % (2-11); Neutrophils Absolute Auto 4.2 x10*3/uL (2.0-8.3); Neutrophils Percent Auto 67.7 % (45-73); Platelet Count 257 X10*3/uL (160-400); Red Blood Count 5.39 X10*6/uL (4.20-5.50); Red Cell Distribution Width 15.2 % (11.0-16.0); White Blood Count 6.1 X10*3/uL (4.8-10.8)
[2022-05-04 14:24] LABS: Alanine Aminotransferase 12 U/L (0-31); Alkaline Phosphatase 83 U/L (39-117); Anion Gap 16 (12-20); Aspartate Amino Transferase 19 U/L (5-31); Bilirubin Total 0.4 mg/dL (0.0-1.0); Blood Urea Nitrogen 13 mg/dL (9-16); Calcium 9.5 mg/dL (8.4-10.2); Carbon Dioxide 24 mmol/L (22-29); Chloride 102 mmol/L (96-108); Cholesterol 193 mg/dL; Estimated Glomerular Filt Rate 47; Glucose Fasting 97 mg/dL (60-99); HDL Cholesterol 42 mg/dL; LDL Cholesterol Calculated 129 mg/dl; Potassium 4.6 mmol/L (3.3-5.1); Sodium 137 mmol/L (135-145); Total Protein 7.4 g/dL (6.5-8.0); Triglycerides 110 mg/dL
[2022-05-04 14:46] LABS: TSH reflex Free T4 1.69 uIU/mL (0.32-4.0)
[2022-05-09 22:01] LABS: Aspergillus Antigen Not Detected (Not Detected); Index Value 0.14 (<0.50)
== END 2022-05-04 11:19 | disposition home or self-care (01) ==
LOC: HO.HMGCLDS 11:18
PROVIDERS: Absent Provider Internal Medicine; PCP Internal Medicine; Visit Provider Internal Medicine Medical Oncology
DX: J44.9 Chronic obstructive pulmonary disease, unspecified (principal); E03.9 Hypothyroidism, unspecified; F17.200 Nicotine dependence, unspecified, uncomplicated
CPT/HCPCS: 36415; 80053; 80061; 84443; 85025; 87305

== ENCOUNTER → 2022-05-31 10:15 | Outpatient (REF) | payer MEDICARE, MEDICAID, SELFPAY ==
--- NOTE | 2022-05-31 10:17 | CA_ITS ---
Transthoracic Echocardiogram Patient (Last, First, Middle): Dorie Schafer M Gender: Female Date of : 1955 Age: 66 Procedure Date: 05/31/2022 Procedure Type: Transthoracic Echocardiogram Location: OP Height: 170.18 cm Weight: 80.74 kg BSA: 1.92 m2 Heart Rate: bpm BP: 100 / 70 mmHg Wood Pattern Maker: TO Referring MD: Emani Dalton MD [employer] Librarian: Pavan Velasquez MD Symptoms: R06.09 - Other forms of dyspnea Study Quality: Fair/Contrast ECG Rhythm: Sinus Conclusions: - 1. Normal LV systolic function with grade 1 diastolic dysfunction 2. Cardiac valvular Dopplers within normal limits 3. Normal RV systolic pressure 4. No gross pericardial effusion Findings Procedure Information Contrast agent, definity, is being given per protocol without apparent complications. Left Ventricle Normal left ventricular size, thickness, and systolic function. The visually estimated ejection fraction is between 60-65%. There is no evidence of regional wall motion abnormalities. Spectral Doppler is indicative of an impaired relaxation filling pattern. E/E prime ratio is <8, consistent with normal filling pressures. Evidence suggests grade I (mild) diastolic dysfunction. Right Ventricle Normal right ventricular cavity size and systolic function. Atria Both atria are normal in size. There is no evidence of interatrial shunt. Aortic Valve The aortic valve structure and function is likely normal. There is no aortic valve stenosis. There is no aortic valve regurgitation. Mitral Valve Likely normal mitral valve structure and function. There is trace mitral valve regurgitation. There is no mitral valve stenosis. Pulmonic Valve The pulmonic valve was not well visualized. Tricuspid Valve Likely normal tricuspid valve structure and function. There is trace tricuspid valve regurgitation. The right ventricular systolic pressure is normal. The right ventricular systolic pressure is 13 mmHg. Normal right atrial pressure. There is no evidence of pulmonary hypertension. Great Vessels All visible segments of the aorta are normal in size. The pulmonary artery was not well visualized. Venous The inferior vena cava is normal in size and collapses greater than 50% with inspiration. Pericardium/Pleural There is no evidence of pericardial effusion. Prior Study Comparison No prior study available for comparison. Measurements 2D Linear Measurements IVSd: 0.80 0.6-0.9/0.6-1.0 cm LVIDd: 4.72 3.9-5.3/4.2-5.9 cm LVIDd Index: 2.46 2.4-3.2/2.2-3.1 cm/m2 LVIDs: 2.74 2.0-3.6 cm LVPWd: 0.88 0.7-1.1 cm LA Diam: 3.70 2.7-3.8/3.0-4.0 cm LAIDs Index: 1.93 1.5-2.3 cm/m2 LV Mass: 163.78 67-162/88-224 g LV Mass Index: 85.30 43-95/49-115 g/m2 LVOT Diam: 2.10 3.0+(-)1.3 cm 2D Systolic Function EF 4C: 63.80 >55% EF 2C: 61.70 >55% EF BiP: 62.70 >55% Mitral Valve MV Pk E: 0.54 MV PK A: 0.84 MV Decel Time: 218.00 E/A: 0.60 E'Lateral: 8.16 E'Medial: 6.31 E/E' Med: 8.60 E/E' Lat: 6.70 PHT: 64.00 MVA PHT: 3.44 Decel Cole: 2.50 Aortic Valve AoV Pk Eusebio: 1.48 AoV Mn Eusebio: 1.00 AoV VTI: 0.31 AoV Pk Grad: 9.00 Aov Mn Grad: 4.00 STEPHEN Cont.VTI: 2.09 LVOT LVOT Pk Eusebio: 0.95 LVOT Mn Eusebio: 0.56 LVOT VTI: 0.19 LVOT Pk Grad: 4.00 LVOT Mn Grad: 1.00 LVOT Diam: 2.10 LVOT Area: 3.46 Diastolic Function MV Pk E: 0.54 MV Pk A: 0.84 E/A: 0.60 E'Medial: 6.31 E/E' Med: 8.60 E' Laterial: 8.16 E/E' Lat: 6.70 Right Ventricle TAPSE (mm): 18.40 TVS' Eusebio: 9.25 Tricuspid Valve TR Pk Eusebio: 1.62 TR Pk Grad: 10.00 RA Press: 3.00 RVSP: 13.00 Great Vessels Aorta Sinus of Valsalva: 3.25 2.0-3.5 cm Ao Asc: 3.40 2.1-3.4 cm Updated in Other Vendor System with Status of Final Pavan Velasquez MD electronically signed on 05/31/2022 1:37:59 PM with status of Final
== END ==
LOC: HO.CARD 10:15
PROVIDERS: PCP Internal Medicine; Visit Provider Internal Medicine
DX: R06.09 Other forms of dyspnea (principal)
CPT/HCPCS: 93306; Q9957

== ENCOUNTER → 2022-07-09 08:47 | Outpatient (BNVA) | payer MEDICARE, MEDICAID, SELFPAY | PROVIDERS: PCP Internal Medicine; Visit Provider Internal Medicine | DX: K22.70 Barrett's esophagus without dysplasia (principal); D12.6 Benign neoplasm of colon, unspecified; I82.409 Acute embolism and thrombosis of unspecified deep veins of unspecified lower extremity; N18.9 Chronic kidney disease, unspecified; Z79.01 Long term (current) use of anticoagulants | CPT/HCPCS: 99202 ==

== ENCOUNTER 2022-08-13 11:41 | Outpatient (REF) | payer MEDICARE, MEDICAID, SELFPAY | END 2022-08-13 11:42 | disposition home or self-care (01) | LOC: HO.BBR 11:41 | PROVIDERS: Visit Provider Internal Medicine Medical Oncology | DX: D75.1 Secondary polycythemia (principal) | CPT/HCPCS: 85018; 99195 ==

== ENCOUNTER 2022-08-22 09:42 | Outpatient (REF) | payer MEDICARE, MEDICAID, SELFPAY ==
--- NOTE | ~2022-08-22 | US_ITS ---
EXAMINATION: US VENOUS ULTRASOUND WITH DOPPLER LOWER EXTREMITY, RIGHT CLINICAL INFORMATION: Follow-up DVT. COMPARISON: None TECHNIQUE: Ultrasound of the deep veins is performed from the hip to the calf with compression sonography and color and pulse Doppler assessment. Spectral analysis with color-flow imaging is performed. FINDINGS: There is normal venous compression and respiratory variation and augmented flow. The visualized common femoral vein, superficial femoral vein, profunda femoral vein, popliteal vein, and the trifurcation region shows no evidence of deep venous thrombosis. There is no significant popliteal fossa cyst. If the patient's symptoms persist, followup ultrasound in 5 days 7 days might be of value to exclude proximal propagation from a non-visualized calf vein. US/US venous duplex LE RT IMPRESSION: No DVT demonstrated in the right lower extremity.
== END 2022-08-22 09:43 | disposition home or self-care (01) ==
LOC: HO.HMGCX 09:42
PROVIDERS: PCP Internal Medicine; Visit Provider Internal Medicine Medical Oncology
DX: I82.401 Acute embolism and thrombosis of unspecified deep veins of right lower extremity (principal)
CPT/HCPCS: 93971

== ENCOUNTER 2022-09-13 11:35 | Day surgery (SDC) | payer MEDICARE, MEDICAID, SELFPAY ==
[2022-09-07 15:15] VITALS: BMI 29.2
--- NOTE | 2022-09-12 14:29 | P.CONAN_ITS ---
Documented by User: Gracy Ortiz NP 09/12/22 14:34 HPI - Anesthesia Eval Consult details Narrative: 66yo F for Upper Endoscopy and Colonoscopy Eliquis for DVT Polycythemia with therapeutic phlebotomies PMFSH Active Problems Active Problems: All Active Problems (Updated 09/07/22 @ 15:09 by Soraya Andrews RN) Erythrocytosis (Acute) Dog bite of finger (Acute) Avulsion fracture of distal phalanx of finger (Acute) Fracture of phalanx of index finger (Acute) Erythrocytosis (Acute) Tubular adenoma of colon (Acute) Del Valle's esophagus (Acute) Fibromyalgia (Acute) LYNCH (dyspnea on exertion) (Acute) Lung nodules (Acute) Chronic anticoagulation (Acute) Chronic kidney disease (Acute) Annual physical exam (Acute) Syncope (Acute) DVT (deep venous thrombosis) (Acute) Depression with anxiety (Acute) Hyperlipidemia (Acute) COPD (chronic obstructive pulmonary disease) (Acute) Mammogram normal (Acute) Tobacco dependency (Acute) Hypothyroidism (Acute) Past Medical History Medical History (Updated 09/07/22 @ 15:09 by Soraya Andrews RN) Annual physical exam Carpal tunnel syndrome of right wrist Colon polyp Constipation COPD (chronic obstructive pulmonary disease) Depression with anxiety DVT (deep venous thrombosis) Encounter for screening for malignant neoplasm of lung Fibromyalgia Graves disease Graves disease H/O radioactive iodine thyroid ablation Hyperlipidemia Hypothyroidism Insomnia Mammogram normal Polycythemia PTSD (post-traumatic stress disorder) Syncope Tobacco dependency Warthin's tumor Family History Family History Father Cancer Mother Stroke CAD (coronary artery disease) Brother No problems noted. Other Substance use disorder Surgical History Surgical History (Updated 09/07/22 @ 15:09 by Soraya Andrews RN) H/O colonoscopy H/O knee surgery History of appendectomy History of esophagogastroduodenoscopy (EGD) Hx of excision of mass Hx of superficial parotidectomy S/P STEPHANI-BSO Social History Social History (Updated 08/10/22 @ 09:20 by Gena Morel CMA) Household Members: None Housing: House Are you a primary chronic care nurse to a significant other at home: No Do you presently have visiting nurse or other home services: No Alcohol intake: former Patient Tobacco Use Status: Current everyday Tobacco user Cigarette Packs Per Day: 1 Cigarettes Per Day: 20.0 Years Smoked: 46 e-Cigarette/Vaping Use: Never Used Use of substances other than those prescribed or required for medical reasons: No Are you DNR?: No Advance Directives: No Advance Directives Information Provided: Yes service: No Current occupational status: disabled Cognitive needs: No Hearing needs: No Vision needs: No Meds Allergies Allergy/AdvReac Type Severity Reaction Status Date / Time codeine [Codeine] Allergy Mild vomiting/rash/flushed Verified 09/07/22 14:58 skin Home Medications Medication Instructions Recorded Confirmed Last Taken Type pregabalin 200 mg capsule 200 mg PO BID 07/09/22 09/07/22 Unknown History Exam Exam Date and Time: September 12, 2022 1429 Height,Weight and Vital Signs: Height 5 ft 7 in Weight 84.822 kg Pertinent Lab Results Pertinent Lab Results: Laboratory Tests 08/10/22 08/10/22 09:00 09:00 WBC 8.8 Hgb 15.9 Hct 48.0 H Sodium 138 Potassium 4.6 Chloride 103 Carbon Dioxide 26 BUN 13 Creatinine 1.20 Narrative Narrative: EKG ?normal sinus rhythm no ST-T changes ECHO 05/2022 Conclusions: - 1. Normal LV systolic function with grade 1 diastolic? dysfunction? 2. Cardiac valvular Dopplers within normal limits? 3. Normal RV systolic pressure ? 4. No gross pericardial effusion ? Holter 2020 Total monitoring time 2 days and 6 hours.? Underlying rhythm is sinus.? Minimum heart rate 57/Min.? Maximum 129/Min.? Average 77/Min.? No atrial fibrillation or flutter or AV blocks or pauses.? Rare supraventricular ectopy with minimal burden; 3 very brief runs, longest 9 beats.? Extremely rare ventricular ectopy.? No sustained arrhythmias.? No patient events. Assessment and Plan Assessment Anesthesia Assessment: Chart Reviewed Documented by User: Danuta Anderson MD 09/13/22 12:34 HPI - Anesthesia Eval Consult details Narrative: 66yo F for Upper Endoscopy and Colonoscopy for dysphagia and screening Eliquis for DVT Polycythemia with therapeutic phlebotomies PMFSH Past Medical History Medical History (Updated 09/07/22 @ 15:09 by Soraya Andrews RN) Annual physical exam Carpal tunnel syndrome of right wrist Colon polyp Constipation COPD (chronic obstructive pulmonary disease) Depression with anxiety DVT (deep venous thrombosis) Encounter for screening for malignant neoplasm of lung Fibromyalgia Graves disease Graves disease H/O radioactive iodine thyroid ablation Hyperlipidemia Hypothyroidism Insomnia Mammogram normal Polycythemia PTSD (post-traumatic stress disorder) Syncope Tobacco dependency Warthin's tumor Family History Family History Father Cancer Mother Stroke CAD (coronary artery disease) Brother No problems noted. Other Substance use disorder Surgical History Surgical History (Updated 09/07/22 @ 15:09 by Soraya Andrews RN) H/O colonoscopy H/O knee surgery History of appendectomy History of esophagogastroduodenoscopy (EGD) Hx of excision of mass Hx of superficial parotidectomy S/P STEPHANI-BSO History of Problems with Anesthesia: No Social History Social History (Updated 08/10/22 @ 09:20 by Gena Morel CMA) Household Members: None Housing: House Are you a primary chronic care nurse to a significant other at home: No Do you presently have visiting nurse or other home services: No Alcohol intake: former Patient Tobacco Use Status: Current everyday Tobacco user Cigarette Packs Per Day: 1 Cigarettes Per Day: 20.0 Years Smoked: 46 e-Cigarette/Vaping Use: Never Used Use of substances other than those prescribed or required for medical reasons: No Are you DNR?: No Advance Directives: No Advance Directives Information Provided: Yes service: No Current occupational status: disabled Cognitive needs: No Hearing needs: No Vision needs: No Meds Allergies Allergy/AdvReac Type Severity Reaction Status Date / Time codeine [Codeine] Allergy Mild vomiting/rash/flushed Verified 09/07/22 14:58 skin Home Medications Medication Instructions Recorded Confirmed Last Taken Type pregabalin 200 mg capsule 200 mg PO BID 07/09/22 09/07/22 Unknown History Exam Airway Lungs: cta Assessment and Plan Assessment Anesthesia Assessment: Anesthesia Plan Discussed and Smoking Cess. Discussed Final Anesthetic Review History of Problems with Anesthesia: No NPO: Yes ASA Class: II Final Preanesthetic Review: No Changes in Pt Med Stat, Meds/Allgs Chart Reviewed, Consent Obtained/Reviewed and Anes Risks/Benef Reviewed Patient Risk: Low Procedure Risk: Low Anesthetic Plan Anesthetic Plan: MAC: Disposition: Standard PACU Documented by User: Elfego Odell MD [facility] Past Medical History Medical History (Updated 09/07/22 @ 15:09 by Soraya Andrews RN) Annual physical exam Carpal tunnel syndrome of right wrist Colon polyp Constipation COPD (chronic obstructive pulmonary disease) Depression with anxiety DVT (deep venous thrombosis) Encounter for screening for malignant neoplasm of lung Fibromyalgia Graves disease Graves disease H/O radioactive iodine thyroid ablation Hyperlipidemia Hypothyroidism Insomnia Mammogram normal Polycythemia PTSD (post-traumatic stress disorder) Syncope Tobacco dependency Warthin's tumor Family History Family History Father Cancer Mother Stroke CAD (coronary artery disease) Brother No problems noted. Other Substance use disorder Surgical History Surgical History (Updated 09/07/22 @ 15:09 by Soraya Andrews RN) H/O colonoscopy H/O knee surgery History of appendectomy History of esophagogastroduodenoscopy (EGD) Hx of excision of mass Hx of superficial parotidectomy S/P STEPHANI-BSO Social History Social History (Updated 08/10/22 @ 09:20 by Gena Morel CMA) Household Members: None Housing: House Are you a primary chronic care nurse to a significant other at home: No Do you presently have visiting nurse or other home services: No Alcohol intake: former Patient Tobacco Use Status: Current everyday Tobacco user Cigarette Packs Per Day: 1 Cigarettes Per Day: 20.0 Years Smoked: 46 e-Cigarette/Vaping Use: Never Used Use of substances other than those prescribed or required for medical reasons: No Are you DNR?: No Advance Directives: No Advance Directives Information Provided: Yes service: No Current occupational status: disabled Cognitive needs: No Hearing needs: No Vision needs: No Meds Allergies Allergy/AdvReac Type Severity Reaction Status Date / Time codeine [Codeine] Allergy Mild vomiting/rash/flushed Verified 09/07/22 14:58 skin Home Medications Medication Instructions Recorded Confirmed Last Taken Type pregabalin 200 mg capsule 200 mg PO BID 07/09/22 09/07/22 Unknown History Exam Airway Mallampati Class: II Neck ROM: Full Denture: Upper and Lower Heart: rr
--- NOTE | 2022-09-13 11:58 | MHC.SHP ---
Pre-Procedural Eval Section A Date of Service: 09/13/22 Section B Chief Complaint: Del Valle's esophagus, dysphagia, hx of polyps Details of Present Illness: PMH: Annual physical exam Carpal tunnel syndrome of right wrist Colon polyp Constipation COPD (chronic obstructive pulmonary disease) Depression with anxiety DVT (deep venous thrombosis) Encounter for screening for malignant neoplasm of lung Fibromyalgia Graves disease Graves disease H/O radioactive iodine thyroid ablation Hyperlipidemia Hypothyroidism Insomnia Mammogram normal Polycythemia PTSD (post-traumatic stress disorder) Syncope Tobacco dependency Warthin's tumor Surgical History: H/O colonoscopy H/O knee surgery History of appendectomy History of esophagogastroduodenoscopy (EGD) S/P STEPHANI-BSO Relevant Family History (Specify if Yes): No Relevant Social History: None Present Medications: see Short Stay Collaborative assessment Allergies: Allergies Allergy/AdvReac Type Severity Reaction Status Date / Time codeine [Codeine] Allergy Mild vomiting/rash/flushed Verified 09/07/22 14:58 skin Review of Systems Review of Systems Comment: 10 point ROS negative except as above Exam Exam Comment: Gen appear: NAD Chest: CTA Abd: soft, NT, ND Neuro: A/Ox3 Plan Diagnosis/Plan: Unchanged I have reviewed the history and physical and performed a pertinent physical examination on my patient. No changes have occurred unless specified. Time Spent With Patient Time: Total time managing care of this patient today ____ minutes.
[2022-09-13 11:59] VITALS: BP 135/71; PULSE 80; RESP 18; TEMP 36.9; O2SAT 95
--- NOTE | 2022-09-13 12:04 | P.OP_ITS ---
Operative Note Operative Note Date of Service: 09/13/22 Narrative: Procedure:?Esophagogastroduodenoscopy and Colonoscopy Indication:?Del Valle's esophagus, dysphagia, personal hx of polyps Endoscopist:?Izabel Perez MD Anesthesia Provider:?Dr Elfego Odell Anesthesia type:?MAC Instrument:?Olympus GIF-H190, PCF-H190L EGD Procedure:?? The procedure, indications, preparation and potential complications were reviewed with the patient, who indicated understanding and gave written informed consent to proceed. A physical exam was performed. A distal attachment cap was affixed to the tip of the endoscope which was then introduced through the mouth, and advanced to the second part of the duodenum. The mucosa was carefully examined on slow withdrawal of the endoscope. The patient tolerated the procedure well. There were no immediate complications.? ? EGD Findings:? * Esophagus: The Z line was at 38 cm and irregular to 1 cm. Multiple small islands of salmon pink colored mucosa were noted with the most proximal island at 35 cm. Hiatal hernia was noted with diaphragmatic pinch at 40 cm. Cold forceps biopsies were taken from 38 cm (GEJ) and 35 cm.? * Stomach:?Normal mucosa was noted in the stomach. Retroflexion in the fundus confirmed the size and morphology of the hiatal hernia with Hill Class II. * Duodenum:? Normal mucosa to the extent seen.? Additional intervention:? A soft tipped Savary wire was inserted through the biopsy channel of the gastroscope and advanced to the antrum. The gastroscope was then withdrawn. A Savary Jamie bougie was introduced over the guidewire and the esophagus was incrementally dilated from 16 mm to 18 mm. On relook, there was no tear noted. Colonoscopy Procedure:? The patient was then turned for the colonoscopy. A digital rectal exam was performed which was normal.? A distal attachment cap was affixed to the tip of the scope and the colonoscope was then inserted through the anus and advanced through the colon to the cecum at 75 cm and terminal ileum. The appendiceal orifice and ileocecal valve was identified.? Mucosa was carefully examined under high definition white light as the instrument was slowly withdrawn in a retrog rade panoramic fashion.? Ascending colon was intubated twice.? Retroflexion was performed in rectum. The procedure was not difficult. There were no immediate obvious complications. The quality of the prep was BBPS: 2+2+2 = adequate Withdrawal time 22 minutes. Limitations: No limitations Colonoscopy Findings: Mucosa: Normal mucosa in colon and terminal ileum. Protruding lesions: * 1 sessile polyp of size 8 mm was noted in the ascending colon. Cold snare polypectomy was performed.? The polyp was completely removed and retrieved.? * 3 sessile polyp of size 8-10 mm were noted in the sigmoid colon. Hot snare polypectomy was performed.? The polyp was completely removed and retrieved.? * 3 sessile polyp of size 4-6 mm were noted in the sigmoid colon. Cold snare polypectomy was performed.? The polyp was completely removed and retrieved.? * Medium internal hemorrhoids with stigmata of recent bleeding. Excavated lesions: * Mild diverticulosis of sigmoid colon. * Impression:? * SCM up to 35 cm suspicious for Del Valle's (biopsy) * Hiatal hernia * Savary dilation * Normal stomach * Normal duodenum * Total of 7 polyps removed from ascending and sigmoid colon. * Internal hemorrhoids * Diverticulosis Recommendations: * Await path results.? * Further management of Del Valle's will depend on presence and extent of dysplasia * Continue PPI therapy * Repeat colonoscopy will be due in 3 years if 3 or more polyps are adenomas or SSL. * Increase fiber intake
[2022-09-13 13:20] VITALS: BP 129/74; PULSE 76; RESP 18; TEMP 36.3; O2SAT 94
[2022-09-13 13:35] VITALS: BP 112/67; PULSE 66; RESP 16; O2SAT 96
[2022-09-13 13:44] VITALS: BP 102/66; PULSE 60; RESP 16; TEMP 36.6; O2SAT 96
== END 2022-09-13 14:11 ==
PROVIDERS: PCP Internal Medicine; Visit Provider Internal Medicine
PROC: (CPT 45385; principal; 2022-09-13 12:10)
DX: Z12.11 Encounter for screening for malignant neoplasm of colon (principal); Z86.010 Personal history of colon polyps; D12.2 Benign neoplasm of ascending colon; K63.5 Polyp of colon; K57.30 Diverticulosis of large intestine without perforation or abscess without bleeding; K64.8 Other hemorrhoids; K22.70 Barrett's esophagus without dysplasia; K22.89 Other specified disease of esophagus; R13.10 Dysphagia, unspecified; K44.9 Diaphragmatic hernia without obstruction or gangrene; K59.00 Constipation, unspecified; J44.9 Chronic obstructive pulmonary disease, unspecified; F43.10 Post-traumatic stress disorder, unspecified; E78.5 Hyperlipidemia, unspecified; M79.7 Fibromyalgia; E05.00 Thyrotoxicosis with diffuse goiter without thyrotoxic crisis or storm; F41.8 Other specified anxiety disorders; Z86.718 Personal history of other venous thrombosis and embolism; Z79.01 Long term (current) use of anticoagulants; Z79.51 Long term (current) use of inhaled steroids; Z79.1 Long term (current) use of non-steroidal anti-inflammatories (NSAID); Z88.8 Allergy status to other drugs, medicaments and biological substances; Z79.899 Other long term (current) drug therapy; F17.210 Nicotine dependence, cigarettes, uncomplicated
CPT/HCPCS: 45385; 43248; 43239; 88305; C1769

== ENCOUNTER → 2022-09-26 09:40 | Outpatient (BNVA) | payer MEDICARE, MEDICAID, SELFPAY | PROVIDERS: PCP Internal Medicine; Visit Provider Internal Medicine | DX: K22.70 Barrett's esophagus without dysplasia (principal); R13.10 Dysphagia, unspecified; Z86.010 Personal history of colon polyps | CPT/HCPCS: 99212 ==

== ENCOUNTER 2022-11-08 08:53 | Outpatient (REF) | payer MEDICARE, MEDICAID, SELFPAY | END 2022-11-08 08:54 | disposition home or self-care (01) | LOC: HO.BBR 08:53 | PROVIDERS: PCP Internal Medicine; Visit Provider Internal Medicine Medical Oncology | DX: D75.1 Secondary polycythemia (principal) | CPT/HCPCS: 85018; 99195 ==

== ENCOUNTER 2023-02-08 08:42 | Outpatient (REF) | payer MEDICARE, OTHER, SELFPAY | END 2023-02-08 08:43 | disposition home or self-care (01) | LOC: HO.BBR 08:42 | PROVIDERS: PCP Internal Medicine; Visit Provider Internal Medicine Medical Oncology | DX: D75.1 Secondary polycythemia (principal) | CPT/HCPCS: 85014; 85018; 99195 ==

== ENCOUNTER 2023-02-22 11:25 | Emergency (ER) | payer MEDICARE, MEDICAID, SELFPAY ==
--- NOTE | ~2023-02-22 | US_ITS ---
EXAMINATION: US VENOUS ULTRASOUND WITH DOPPLER LOWER EXTREMITY, LEFT CLINICAL INFORMATION: The left lower extremity swelling. COMPARISON: None available. TECHNIQUE: Ultrasound of the deep veins is performed from the hip to the calf with compression sonography and color and pulse Doppler assessment. Spectral analysis with color-flow imaging is performed. FINDINGS: The visualized common and proximal superficial veins are patent with normal compression and flow. Acute appearing thrombus identified in duplicated mid femoral, distal femoral, popliteal and posterior tibial veins. Peroneal veins were not seen. There is no significant popliteal fossa cyst. US/US venous duplex LE LT IMPRESSION: Positive deep venous thrombosis from the mid femoral duplicated vein to posterior tibial veins.
[2023-02-22 11:37] VITALS: BP 121/60; BP 125/58; PULSE 88; RESP 18; TEMP 37.2; O2SAT 92; O2SAT 94; BMI 31.8
--- NOTE | 2023-02-22 13:25 | ED_ITS ---
HPI - General Adult General Chief complaint: General Medical Stated complaint: DVT Time Seen by Provider: 02/22/23 12:31 Source: patient and EMS Mode of arrival: EMS Limitations: other (Poor historian) History of Present Illness HPI narrative: 67-year-old female history of carpal tunnel, COPD, DVT, depression with anxiety, fibromyalgia, Graves disease, hyperlipidemia, hypothyroidism, polycythemia ( followed by Dr. Veliz), PTSD, Warthin's tumor presenting the emergency department for left lower extremity pain and swelling & warmth, this has been worsening over the past few days, patient reports that she has history of DVT, year ago she had a DVT in the right lower extremity, she reports she was on Eliquis ( 5mg po BID ) up until a week or 2 ago, she reports that she was told to not take this medication anymore by Dr. Veliz unclear why however. Patient denies chest pain, shortness of breath, fevers, chills, numbness and tingling. Related Data Previous Rx's Medication Instructions Recorded nicotine 21 mg/24 hr daily 1 patch transdermal DAILY #28 ea 05/04/22 transdermal patch omeprazole 20 mg capsule,delayed 20 mg PO DAILY #90 caps 06/18/22 release fluticasone fur. 100 mcg-umeclid 1 inh inhalation DAILY #60 ea 07/09/22 62.5 mcg-vilant 25 mcg inhalat.powder (Trelegy Ellipta) duloxetine 60 mg capsule,delayed 60 mg PO DAILY #90 caps 08/13/22 release trazodone 300 mg tablet 300 mg PO BEDTIME #90 tabs 08/13/22 apixaban 5 mg tablet (Eliquis) 5 mg PO BID #180 tabs 08/29/22 albuterol sulfate 90 mcg/actuation 2 puff inhalation Q6H PRN 10/12/22 aerosol inhaler shortness of breath or wheezing #8.5 grams buspirone 10 mg tablet 10 mg PO BID #180 tabs 10/17/22 levothyroxine 112 mcg tablet 112 mcg PO DAILY #90 tabs 11/09/22 pregabalin 200 mg capsule 200 mg PO BID #180 caps 01/09/23 apixaban 5 mg (74 tabs) tablets in 5 mg PO BID #74 ea 02/22/23 a dose pack (Eliquis DVT-PE Treat 30D Start) cephalexin 500 mg tablet 500 mg PO Q6H 7 days #28 tabs 02/22/23 Allergies Allergy/AdvReac Type Severity Reaction Status Date / Time codeine [Codeine] Allergy Mild vomiting/rash/flushed Verified 02/08/23 09:28 skin Review of Systems Review of Systems: Constitutional : No Weight loss, No Fever, No Chills, No Fatigue, No Malaise ENT/Mouth : No sore throat, No Rhinorrhea Eyes: No Eye Pain, No Swelling, No Redness Cardiovascular : No Chest Pain, No SOB, No Dyspnea on Exertion, No Orthopnea, + Edema, No Palpitations Respiratory : No Cough, No Sputum, No Wheezing Gastrointestinal : No Nausea, No Vomiting, No Diarrhea, No Constipation, No abdominal Pain, No Hematochezia, No Melena Genitourinary : No Dysuria, No Urinary Frequency, No Hematuria, Musculoskeletal : No joint pain, No Myalgias, No Joint Swelling Skin : No Skin Lesions, No rash Neuro : No Weakness, No Numbness, No Dizziness, No Headache Psych : No Anxiety/Panic, No Depression All other systems reviewed and are negative Yes all other systems are reviewed and are negative PMFSH Past Medical History Attestation statement: The following information was validated with the patient. Source: old records reviewed and nursing notes reviewed Medical History Annual physical exam Carpal tunnel syndrome of right wrist Colon polyp Constipation COPD (chronic obstructive pulmonary disease) Depression with anxiety DVT (deep venous thrombosis) Encounter for screening for malignant neoplasm of lung Fibromyalgia Graves disease Graves disease H/O radioactive iodine thyroid ablation Hyperlipidemia Hypothyroidism Insomnia Mammogram normal Polycythemia PTSD (post-traumatic stress disorder) Syncope Tobacco dependency Warthin's tumor Surgical History H/O colonoscopy H/O knee surgery History of appendectomy History of esophagogastroduodenoscopy (EGD) Hx of excision of mass Hx of superficial parotidectomy S/P STEPHANI-BSO Family History Family History Father Cancer Mother Stroke CAD (coronary artery disease) Brother No problems noted. Other Substance use disorder Social History Social History Household Members: None Housing: House Are you a primary respiratory care technician to a significant other at home: No Do you presently have visiting nurse or other home services: No Alcohol intake: never Patient Tobacco Use Status: Current everyday Tobacco user Cigarette Packs Per Day: 1 Cigarettes Per Day: 20.0 Years Smoked: 46 Smoked in Last 30 Days: Yes e-Cigarette/Vaping Use: Never Used Use of substances other than those prescribed or required for medical reasons: No Advance Directives: No Advance Directives Information Provided: No service: No Current occupational status: disabled Cognitive needs: No Hearing needs: No Vision needs: No Physical Exam ED Vital Signs: Vital Signs - 24 hr 02/22/23 11:37 Temperature 98.9 F Pulse Rate 88 Respiratory Rate 18 Blood Pressure 121/60 Pulse Oximetry 92 Oxygen Delivery Method Room Air BMI result Body Mass Index 31.8 vss Appearance: Alert.? Oriented X3.? No acute distress.? Head: Normocephalic, atraumatic, no step-offs or deformities Eyes: Pupils equal, round and reactive to light.? ENT: Pharynx normal.? Neck: Normal inspection.? Neck supple.? CVS: Normal heart rate and rhythm.? Pulses normal.? Respiratory: No respiratory distress.? Breath sounds normal.? Abdomen: Soft and nontender.? Skin: Skin warm and dry.? Normal skin color.? Normal skin turgor.? Extremities: No lower extremity edema.?+ L sided keenan sign negative on right. 5/5 strength to bilateral upper and lower extremities + left anterior richards with erythema and warmth 2+ dorsalis pedis, anterior tibialis posterior tibialis and popliteal pulses equal bilateral. Neuro: Oriented X 3.? No motor deficit.? No sensory deficit. CN 2-12 intact Course Course Course Narrative: Discuss this case with my attending who recommends giving a 10 mg p.o. dose now and patient can take a 2nd 10 mg dose when she gets home. Reevaluation(s) Reevaluation #1: Labs are pending, ultrasound also pending. Time: 13:29 Reevaluation #2: Wet read of ultrasound with positive DVT. Will reach out to Hematology- Oncology. Time: 13:45 Reevaluation #3: I spoke to Dr. David Hematology-Oncology of positive DVT study patient should have a hypercoagulable panel done prior to patient being discharged she should be started on the Eliquis starter pack again and she should follow up with Dr. Veliz as soon as possible. Asked her if there is any indication for chest CT/CTA, reports no indication of patient does not have chest pain or shortness of breath. Time: 14:04 Additional Reevaluation(s): 1429 DVT study of left lower extremity with positive DVT from the mid femoral duplicated vein to posterior tibial veins. Patient will be given 1st dose of Eliquis here, will send her home with the starter pack. I did send the hypercoagulable panel, it is pending. Patient to follow-up with Dr. Veliz. Educated patient on diagnosis and treatment plan, answered all question, patient verbalizes understanding. At this time patient will be discharged home, advised to return with new or worsening symptoms. Educated on worrisome signs a nd symptoms and when to return. At this time I feel comfortable discharge home. Medical Decision Making Medical Decision Making [facility] Narrative: 1328 67-year-old female recently taken off of Eliquis presents with left lower extremity swelling and pain going on for the past few days worse. History of DVT Physical exam significant for No lower extremity edema.?+ L sided keenan sign negative on right. 5/5 strength to bilateral upper and lower extremities + left anterior richards with erythema and warmth 2+ dorsalis pedis, anterior tibialis posterior tibialis and popliteal pulses equal bilateral Concerns for cellulitis with possible DVT to left lower extremity. Unlikely arterial occlusion, neurovascular compromise, threat to Limb, fracture dislocation. Plan at this time labs, imaging. Differential Diagnosis Differential Diagnoses: The differential diagnosis associated with the presentation includes Concerns for cellulitis with possible DVT to left lower extremity. Unlikely arterial occlusion, neurovascular compromise, threat to [place], fracture dislocation. Admission/Observation Consideration of admission/observation: Escalation of care including admiss ion/observation considered Unlikely Consult Healthcare Provider Management of the patient was discussed with: Machine Riveter (Ddr. David ) Lab Data [facility] Lab Attestation statement: I reviewed the patient's lab results. 02/22/23 13:52 02/22/23 13:52 Labs: Lab Results 02/22/23 02/22/23 02/22/23 Range/Units 13:52 13:52 13:52 WBC 6.6 (4.8-10.8) X10*3/uL RBC 4.62 (4.20-5.50) X10*6/uL Hgb 11.6 L (12.0-16.0) g/dl Hct 37.6 (37.0-47.0) % MCV 81.4 (80.0-98.0) fL MCH 25.1 L (27.0-33.0) pg MCHC 30.9 L (31.0-35.0) g/dl RDW 16.7 H (11.0-16.0) % Plt Count 237 (160-400) X10*3/uL MPV 10.3 (9.4-12.3) fL Immature Gran % (Auto) 0.2 (0.0-0.4) % Neut % (Auto) 62.8 (45-73) % Lymph % (Auto) 25.6 (20-40) % [place] % (Auto) 10.2 (2-11) % Eos % (Auto) 0.3 (0-4) % Baso % (Auto) 0.9 (0-2) % Lymph # (Auto) 1.7 (1.2-4.9) X10*3/uL [place] # (Auto) 0.7 (0.1-1.2) X10*3/uL Eos # (Auto) 0.0 (0.0-0.4) X10*3/uL Baso # (Auto) 0.1 (0.0-0.2) X10*3/uL Abs Immat Gran (auto) 0.01 (0.00-0.03) X10*3/uL Absolute Neuts (auto) 4.2 (2.0-8.3) x10*3/uL Absolute Nucleated RBC 0.000 (0.0-0.012) X10*3/uL Nucleated RBC % (auto) 0.0 (0.0-0.2) /100WBC PT 11.4 (11.1-13.3) SEC INR 0.9 (0.9-1.1) Sodium 140 (135-145) mmol/L Potassium 4.4 (3.3-5.1) mmol/L Chloride 105 (96-108) mmol/L Carbon Dioxide 27 (22-29) mmol/L Anion Gap 12 (12-20) BUN 9 (9-16) mg/dL Creatinine 1.02 (0.5-1.4) mg/dL Estim Creat Clear Calc 64.0 Estimated GFR 54 Random Glucose 90 (60-115) mg/dL Calcium 9.2 (8.4-10.2) mg/dL Total Bilirubin 0.2 (0.0-1.0) mg/dL AST 17 (5-31) U/L ALT 15 (0-31) U/L Alkaline Phosphatase 75 (39-117) U/L Total Protein 7.2 (6.5-8.0) g/dL Albumin 3.6 (3.5-5.0) g/dL Independent Interpretation I performed an independent interpretation of an: Ultrasound (US/US venous duplex LE LT IMPRESSION: Positive deep venous thrombosis from the mid femoral duplicated vein to posterior tibial veins.) Radiology Impression Discussion of test interpretation with radiology: I have reviewed the radiologist's reading. External Record Review External record reviewed: Inpatient record, Office record, Outpatient record, Prior outpatient labs, Prior outpatient radiology, Primary care record and Outside ED record Prescription Management I considered prescription management with: Other (Blood thinner) Chronic Conditions Patient?s care impacted by: Cancer (Polycythemia ) Core Measures AMI core measures followed: Yes Measure exclusions: not indicated Critical Care Time Critical Care Time Critical Care Time: Yes Total Critical Care Time: 35 Attestation: I attest to this time spent taking care of the patient, obtaining history, physical, reviewing labs, imaging, speaking to my attending, speaking to specialist. Discharge Plan Discharge Clinical Impression: DVT (deep venous thrombosis), Cellulitis Patient Disposition: Home, Self-Care Instructions: Cellulitis (ED), Deep Vein Thrombosis (ED) Additional Instructions: Take your medications as prescribed. If you were prescribed antibiotics today, it is important that you take your medication to their entirety, do not skip any doses, do not finish them early. Follow-up with your primary care provider this week. Return to the emergency department with new or worsening symptoms. Such as fevers, chills, chest pain, shortness of breath, nausea, vomiting, dizziness, headache, vision changes, lethargy In case of emergency call 911 Your given 10 mg of Eliquis today in the emergency department. Start starter pack as instructed US/US venous duplex LE LT IMPRESSION: Positive deep venous thrombosis from the mid femoral duplicated vein to posterior tibial veins. Prescriptions: New cephalexin 500 mg tablet 500 mg PO Q6H 7 Days Qty: 28 0RF Eliquis DVT-PE Treat 30D Start 5 mg (74 tabs) tablets,dose pack 5 mg PO BID Qty: 74 0RF No Action omeprazole 20 mg capsule,delayed release(DR/EC) 20 mg PO DAILY Qty: 90 3RF Trelegy Ellipta 100-62.5-25 mcg blister with device 1 inh inhalation DAILY Qty: 60 5RF trazodone 300 mg tablet 300 mg PO BEDTIME Qty: 90 3RF duloxetine 60 mg capsule,delayed release(DR/EC) 60 mg PO DAILY Qty: 90 3RF Eliquis 5 mg tablet 5 mg PO BID Qty: 180 3RF albuterol sulfate 90 mcg/actuation HFA aerosol inhaler 2 puff inhalation Q6H PRN (Reason: shortness of breath or wheezing) Qty: 8.5 2RF buspirone 10 mg tablet 10 mg PO BID Qty: 180 3RF levothyroxine 112 mcg tablet 112 mcg PO DAILY Qty: 90 3RF pregabalin 200 mg capsule 200 mg PO BID Qty: 180 1RF nicotine 21 mg/24 hr patch 24 hour 1 patch transdermal DAILY Qty: 28 3RF Referrals: Emani Dalton MD [Primary Care Provider] - 2 days Andre Veliz MD [Physician] - 3 days Stand Alone Forms: Work/School Release
[2023-02-22 14:05] LABS: MANUAL DIFF FLAG NO
[2023-02-22 14:11] LABS: Basophils Absolute Auto 0.1 X10*3/uL (0.0-0.2); Basophils Percent Auto 0.9 % (0-2); Eosinophils Percent Auto 0.3 % (0-4); Hematocrit 37.6 % (37.0-47.0); Hemoglobin 11.6 g/dl (12.0-16.0); Imm Gran Abs Auto 0.01 X10*3/uL (0.00-0.03); Imm Gran Pct Auto 0.2 % (0.0-0.4); Lymphocytes Absolute Auto 1.7 X10*3/uL (1.2-4.9); Lymphocytes Percent Auto 25.6 % (20-40); Mean Corpuscular HGB Conc 30.9 g/dl (31.0-35.0); Mean Corpuscular Hemoglobin 25.1 pg (27.0-33.0); Mean Corpuscular Volume 81.4 fL (80.0-98.0); Mean Platelet Volume 10.3 fL (9.4-12.3); Monocytes Absolute Auto 0.7 X10*3/uL (0.1-1.2); Monocytes Percent Auto 10.2 % (2-11); Neutrophils Absolute Auto 4.2 x10*3/uL (2.0-8.3); Neutrophils Percent Auto 62.8 % (45-73); Platelet Count 237 X10*3/uL (160-400); Red Blood Count 4.62 X10*6/uL (4.20-5.50); Red Cell Distribution Width 16.7 % (11.0-16.0); White Blood Count 6.6 X10*3/uL (4.8-10.8)
[2023-02-22 14:13] LABS: INTERNATIONAL NORM RATIO 0.9 (0.9-1.1); Prothrombin Time 11.4 SEC (11.1-13.3)
[2023-02-22 14:24] LABS: Alanine Aminotransferase 15 U/L (0-31); Albumin Level 3.6 g/dL (3.5-5.0); Alkaline Phosphatase 75 U/L (39-117); Anion Gap 12 (12-20); Aspartate Amino Transferase 17 U/L (5-31); Bilirubin Total 0.2 mg/dL (0.0-1.0); Blood Urea Nitrogen 9 mg/dL (9-16); Calcium 9.2 mg/dL (8.4-10.2); Carbon Dioxide 27 mmol/L (22-29); Chloride 105 mmol/L (96-108); Estimated Glomerular Filt Rate 54; Glucose Random 90 mg/dL (60-115); Potassium 4.4 mmol/L (3.3-5.1); Sodium 140 mmol/L (135-145); Total Protein 7.2 g/dL (6.5-8.0)
[2023-02-22 14:41] LABS: Partial Thromboplastin Time 33.4 SEC (26.0-36.4)
[2023-02-22 14:48] LABS: D Dimer High Sensitivity 1720 NG/ML
[2023-02-22] MEDS: Apixaban 5 MG TABLET 10 MG PO (14:48)
[2023-02-25 16:59] LABS: Homocysteine 16.1 umol/L (<10.4)
[2023-02-25 21:59] LABS: Cardiolipin IgG Ab <2.0 GPL-U/mL; Cardiolipin IgM Ab 6.1 MPL-U/mL
[2023-02-27 20:29] LABS: Anti-Thrombin III Antigen 126 % normal (80-120)
[2023-02-27 23:38] LABS: Protein C Activity 119 % normal (70-180); Protein S Activity rflx Tot&Fr 55 % normal (60-140)
[2023-02-28 00:34] LABS: DRVVT 1:1 Mix CORRECTED (CORRECTED); DRVVT Confirmation Positive (Negative); Hexagonal Phase Neutralization Weak Positive (Negative); PTT (LAC) Screen 57 sec (<=40); Thrombin Clotting Time 17 sec (13-19)
[2023-03-01 16:08] LABS: Protein S Free Antigen 64 % normal (50-147); Protein S Total (Antigenic) 106 % normal (70-140)
[2023-03-03 18:18] LABS: Prothrombin 20210A NEGATIVE
[2023-03-03 19:23] LABS: Factor V Leiden NEGATIVE
== END 2023-02-22 15:13 | disposition home or self-care (01) ==
PROVIDERS: Physician Assistant; Emergency Provider Emergency Medicine Emergency Medical Services; PCP Internal Medicine
DX: I82.4Z2 Acute embolism and thrombosis of unspecified deep veins of left distal lower extremity (principal); R60.0 Localized edema; L03.116 Cellulitis of left lower limb; M79.605 Pain in left leg; F17.210 Nicotine dependence, cigarettes, uncomplicated; Z79.899 Other long term (current) drug therapy; Z86.718 Personal history of other venous thrombosis and embolism; Z79.01 Long term (current) use of anticoagulants; Z71.6 Tobacco abuse counseling
CPT/HCPCS: 36415; 80053; 81240; 81241; 83090; 85025; 85301; 85302; 85303; 85305; 85306; 85379; 85597; 85598; 85610; 85613; 85670; 85730; 86147; 93971; 99284

== ENCOUNTER 2023-03-19 10:26 | Outpatient (REF) | payer MEDICARE, MEDICAID, SELFPAY ==
--- NOTE | ~2023-03-19 | CT_ITS ---
EXAMINATION: LUNG CANCER SCREENING CT CHEST WITHOUT CONTRAST CLINICAL INFORMATION: Current smoker with 45 pack year history COMPARISON: 05/08/2021 TECHNIQUE: Multidetector volumetric CT imaging of the chest was obtained noncontrast using low dose screening CT technique. Axial thin section 0.625 mm reformations in soft tissue and lung windows were obtained. Sagittal and coronal reformations were obtained. Axial MIP images were also created and reviewed. This CT examination was performed using dose optimization techniques as appropriate, variously including the following: *Automated exposure control *Adjustment of mA and/or kV according to patient size (this includes techniques or standardized protocols for targeted exams where dose is matched to indication/reason for exam; i.e. extremities or head) *Use of iterative reconstruction technique TOTAL EXAM DLP: 111 mGy-cm FINDINGS: PULMONARY NODULES (see sibley images): No suspicious pulmonary nodules. There is a 3 mm nodule in the right upper lobe and a punctate nodule in the left lower lobe. LUNGS / PLEURA: Mild emphysema. Diffuse mild subpleural reticulation and trace subpleural groundglass opacity appears similar to prior may represent an element of desquamative interstitial pneumonitis/smoking-related interstitial lung disease.. No acute pneumonic process. No pleural effusion or pneumothorax. MEDIASTINUM / ELENA: Heart normal in size without pericardial effusion. Great vessels normal caliber. No lymphadenopathy. Coronary calcifications present. Imaged thyroid gland unremarkable. CHEST WALL / AXILLA: Unremarkable. UPPER ABDOMEN: Small sliding-type hiatal hernia. OSSEOUS STRUCTURES: No acute or suspicious osseous abnormalities. CT/CT lung screening IMPRESSION: * No evidence of pulmonary malignancy. * Mild emphysema / smoking-related interstitial lung disease as described. ASSESSMENT: Lung RADS category: 2. Benign appearance or behavior. Nodules with a very low likelihood of becoming a clinically active cancer due to size or lack of growth. Continue annual screening with low-dose CT in 12 months. Probability of malignancy less than 1%. RECOMMENDATION: Follow up low dose CT chest in 1 year.
== END 2023-03-19 10:27 | disposition home or self-care (01) ==
LOC: HO.CT 10:26
PROVIDERS: PCP Internal Medicine; Visit Provider Physician Assistant Medical
DX: Z12.2 Encounter for screening for malignant neoplasm of respiratory organs (principal); Z87.891 Personal history of nicotine dependence
CPT/HCPCS: 71271

== ENCOUNTER 2023-05-17 09:04 | Outpatient (REF) | payer MEDICARE, SELFPAY | END 2023-05-17 09:05 | disposition home or self-care (01) | LOC: HO.BBR 09:04 | PROVIDERS: PCP Internal Medicine; Visit Provider Internal Medicine Medical Oncology | DX: D75.1 Secondary polycythemia (principal) | CPT/HCPCS: 85018; 99195 ==

== ENCOUNTER 2023-06-17 10:55 | Outpatient (REF) | payer MEDICARE, SELFPAY ==
[2023-06-17 11:15] LABS: MANUAL DIFF FLAG NO
[2023-06-17 11:17] LABS: Basophils Absolute Auto 0.1 X10*3/uL (0.0-0.2); Basophils Percent Auto 1.6 % (0-2); Eosinophils Percent Auto 0.2 % (0-4); Hematocrit 41.3 % (37.0-47.0); Hemoglobin 12.2 g/dl (12.0-16.0); Imm Gran Abs Auto 0.01 X10*3/uL (0.00-0.03); Imm Gran Pct Auto 0.2 % (0.0-0.4); Lymphocytes Absolute Auto 1.6 X10*3/uL (1.2-4.9); Lymphocytes Percent Auto 31.6 % (20-40); Mean Corpuscular HGB Conc 29.5 g/dl (31.0-35.0); Mean Corpuscular Hemoglobin 22.3 pg (27.0-33.0); Mean Corpuscular Volume 75.6 fL (80.0-98.0); Monocytes Absolute Auto 0.6 X10*3/uL (0.1-1.2); Monocytes Percent Auto 12.2 % (2-11); Neutrophils Absolute Auto 2.7 x10*3/uL (2.0-8.3); Neutrophils Percent Auto 54.2 % (45-73); Platelet Count 262 X10*3/uL (160-400); Red Blood Count 5.46 X10*6/uL (4.20-5.50); Red Cell Distribution Width 19.3 % (11.0-16.0); White Blood Count 4.9 X10*3/uL (4.8-10.8)
[2023-06-17 12:30] LABS: Alanine Aminotransferase 12 U/L (0-31); Albumin Level 3.6 g/dL (3.5-5.0); Alkaline Phosphatase 72 U/L (39-117); Anion Gap 10 (12-20); Aspartate Amino Transferase 16 U/L (5-31); Bilirubin Total 0.2 mg/dL (0.0-1.0); Blood Urea Nitrogen 13 mg/dL (9-16); Calcium 9.2 mg/dL (8.4-10.2); Carbon Dioxide 29 mmol/L (22-29); Chloride 103 mmol/L (96-108); Estimated Glomerular Filt Rate 58; Glucose Random 88 mg/dL (60-115); Potassium 4.6 mmol/L (3.3-5.1); Sodium 137 mmol/L (135-145); Total Protein 7.5 g/dL (6.5-8.0)
== END 2023-06-17 10:56 | disposition home or self-care (01) ==
LOC: HO.BBR 10:55
PROVIDERS: PCP Internal Medicine; Visit Provider Internal Medicine Medical Oncology
DX: D75.1 Secondary polycythemia (principal)
CPT/HCPCS: 36415; 80053; 85018; 85025; 99195

== ENCOUNTER 2023-09-18 10:46 | Outpatient (REF) | payer MEDICARE, SELFPAY | END 2023-09-18 10:47 | disposition home or self-care (01) | LOC: HO.BBR 10:46 | PROVIDERS: PCP Internal Medicine; Visit Provider Internal Medicine Medical Oncology | DX: D75.1 Secondary polycythemia (principal) | CPT/HCPCS: 85014; 85018; 99195 ==

== ENCOUNTER 2023-10-16 09:06 | Outpatient (AMB) | payer MEDICARE, SELFPAY ==
--- NOTE | 2023-10-16 09:17 | MHC.PC.OV ---
Vital Signs 10/16/23 09:19 Height 5 ft 7 in Weight 203 lb BMI 31.8 BP 124/64 Blood Pressure Location Lt brachial Position Sitting Pulse 93 Pulse Source Pulse Oximeter Pulse Oximetry (%) 95 Oxygen Delivery Method Room Air Intake Visit Reasons: Annual Physical Intake Note: Pt is here today for PE. Pt states that she has been having swelling in her feet for 2 weeks now. Allergies codeine [Codeine] Allergy (Mild, Verified 10/16/23 09:23) vomiting/rash/flushed skin Medication List - Last Reconciled 10/16/23 by Emani Dalton MD albuterol sulfate 90 mcg/actuation 2 puffs inhalation Q6H PRN apixaban (Eliquis) 5 mg PO BID buspirone 10 mg PO BID duloxetine 60 mg PO DAILY wtspftsauth-zqidzcyjv-ibbygura 100-62.5-25 mcg (Trelegy Ellipta) 1 inh inhalation DAILY levothyroxine 112 mcg PO DAILY omeprazole 20 mg PO DAILY pravastatin 20 mg PO DAILY pregabalin 200 mg PO BID trazodone 300 mg PO BEDTIME Tobacco use date assessed: 10/16/23 Fall risk assessment: 1 Fall in past year Last assessed Fall Risk: 10/16/23 Dental Screening Dental Screen Date: 10/16/23 Did you have a dental visit in the last 12 months?: No Did you have a dental problem in the last 6 months where you did not have access to dental care?: No Was dental information given to patient?: Patient declined HPI Annual Physical HPI Details Patient presents for physical. She developed DVT 2 weeks after she stopped taking Eliquis and is back on it. COPD stable on Trelegy but patient continues to smoke a pack a day and is not able to quit. [facility] Medical History (Updated 10/16/23 @ 10:29 by Emani Dalton MD) H/O radioactive iodine thyroid ablation Graves disease Syncope Colon polyp Annual physical exam DVT (deep venous thrombosis) Encounter for screening for malignant neoplasm of lung Polycythemia Hyperlipidemia Mammogram normal Tobacco dependency Hypothyroidism Carpal tunnel syndrome of right wrist PTSD (post-traumatic stress disorder) COPD (chronic obstructive pulmonary disease) Warthin's tumor Graves disease Constipation Insomnia Depression with anxiety Fibromyalgia Surgical History Hx of superficial parotidectomy Hx of excision of mass History of esophagogastroduodenoscopy (EGD) H/O knee surgery History of appendectomy H/O colonoscopy S/P STEPHANI-BSO Family History Father Cancer Mother Stroke CAD (coronary artery disease) Brother No problems noted. Other Substance use disorder Social History Household Members: None Housing: House Are you a primary care transition mgr to a significant other at home: No Do you presently have visiting nurse or other home services: No Alcohol intake: never Patient Tobacco Use Status: Current everyday Tobacco user Cigarette Packs Per Day: 1 Cigarettes Per Day: 20.0 Years Smoked: 46 e-Cigarette/Vaping Use: Never Used service: No Current occupational status: disabled Cognitive needs: No Hearing needs: No Vision needs: No Questionnaire PHQ-9 Over the last 2 weeks, how often have you been bothered by any of the following problems? 1. Little interest or pleasure in doing things: more than half the days 2. Feeling down, depressed, or hopeless: more than half the days 3. Trouble falling or staying asleep, or sleeping too much: nearly every day 4. Feeling tired or having little energy: nearly every day 5. Poor appetite or overeating: more than half the days 6. Feeling bad about yourself - or that you are a failure or have let yourself or your family down: not at all 7. Trouble concentrating on things, such as reading the newspaper or watching television: more than half the days 8. Moving or speaking so slowly that other people could have noticed. Or the opposite - being so fidgety or restless that you have been moving around a lot more than usual: more than half the days 9. Thoughts that you would be better off or of hurting yourself in some way: not at all Total score: 16 Depression Screening Interpretation: Positive (Patient has been taking medications and is getting established with a new counselor) Depression Screening Follow-up: Existing condition and In treatment Depression Screening Done: Yes Source: Developed by Drs. Arnav Carl, Oralia Benedict, Ray Porter and colleagues, with an educational shailesh from [employer]. Thrive Questionnaire Date Thrive assessed: 10/16/23 I am a: Patient What is your living situation today?: I have a steady place to live Within the past 12 months, did the food you bought not last and you didn't have the money to get more?: Sometimes True Within the past 12 months, did you worry whether your food would run out before you got money to buy more?: Sometimes True Do you have trouble paying for medicines?: No Do you have trouble getting transportation to medical appointments?: No Do you have trouble paying your heating and electricity bill?: No Do you have trouble taking care of your child, family member or friend?: No Do you have trouble with day-to-day activities such as bathing, preparing meals, shopping, managing finances, etc.?: No Are you currently unemployed and looking for a job?: No Are you interested in more education?: No Please select the resources that you would like help with: None THRIVE Score: 2 AUDIT C Alcohol Use Questionnaire (AUDIT-C) 1. How often do you have a drink containing alcohol?: Never 3. How often do you have six or more drinks on one occasion?: Never Total Score: 0 JORGE-7 AMB Questionnaire JORGE-7 Date JORGE - 7 assessed: 10/16/23 Feeling nervous, anxious, or on edge: 2 = More than half the days Not being able to stop or control worryin = More than half the days Worrying too much about different things: 2 = More than half the days Trouble relaxin = More than half the days Being so restless that it is hard to sit still: 2 = More than half the days Becoming easily annoyed or irritable: 0 = Not at all Feeling afraid as if something awful might happen: 0 = Not at all Total JORGE-7 score (0-4 normal; 5-9 mild; 10-14 moderate; 15-21 severe): 10 Source: Developed by Drs. Arnav Carl, Oralia Benedict, Ray Porter and colleagues, with an educational shailesh from [employer]. Review of Systems Const All systems reviewed & are unremarkable except as noted in HPI and below Reports no additional complaints Eyes Reports no additional complaints ENT Reports no additional complaints Card Reports no additional complaints Resp Reports no additional complaints GI Reports no additional complaints Reports no additional complaints Physical exam (Primary Care) Vital Signs: Last Vital Signs Pulse 93 10/16/23 09:19 BP 124/64 10/16/23 09:19 Pulse Ox 95 10/16/23 09:19 Oxygen Delivery Method Room Air 10/16/23 09:19 BMI result Body Mass Index 31.8 Tobacco/Smoking Status: Tobacco use Status Tobacco use date assessed 10/16/23 10/16/23 09:29 Patient Tobacco Use Status Current everyday Tobacco 10/16/23 09:17 e-Cigarette/Vaping Use Never Used 10/16/23 09:17 PHQ-9: PHQ-9 Score PHQ-9: Total score 16 10/16/23 09:29 Depression Screening Interpretation: Positive (Patient has been taking medications and is getting established with a new counselor) Depression Screening Follow-up: Existing condition and In treatment Thrive Assessment: Date of Thrive Assessment Date Thrive assessed 10/16/23 10/16/23 09:29 Const General: no acute distress HENMT Head: Yes normal to inspection Ears: hearing grossly normal bilaterally General nose exam: Normal external nose present Mouth: Normal oral and palatal mucosa present Throat: Yes posterior oropharynx normal Eyes General: appearance normal, both eyes and all related structures Neck Neck: Yes no lymphadenopathy and Yes supple Resp Effort & Inspection: normal respiratory effort Auscultation: diminished lung sounds Cardio Rhythm: regular rhythm Heart sounds: S1 normal heart sound present and S2 normal heart sound present GI Inspection: Yes normal to inspection Palpation (GI): Soft to palpation Percussion: Yes normal to percussion Auscultation: normal bowel sounds Extrem Other: Trace pitting edema bilaterally Assessment and Plan Assessment & Plan (1) COPD (chronic obstructive pulmonary disease): Code(s): J44.9 - Chronic obstructive pulmonary disease, unspecified Plan: Continue Trelegy tobacco quitting discussed with the patient (2) Hypothyroidism: Code(s): E03.9 - Hypothyroidism, unspecified Plan: Continue levothyroxine return for fasting blood work (3) Hyperlipidemia: Code(s): E78.5 - Hyperlipidemia, unspecified Plan: Restart pravastatin (4) Chronic anticoagulation: Comment: On Eliquis for lifetime for recurrent DVTs Code(s): Z79.01 - rn long term care (current) use of anticoagulants (5) Tubular adenoma of colon: Comment: 2018 SCOPE, REPEAT IN 5 YEARS Code(s): D12.6 - Benign neoplasm of colon, unspecified Plan: Follow-up with GI (6) Del Valle's esophagus: Comment: Established with GI Dr. 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 Panel Fast 1 Month E03.9 - Hypothyroidism, unspecified, E78.5 - Hyperlipidemia, unspecified, J44.9 - Chronic obstructive pulmonary disease, unspecified, Z79.01 - assisted (current) use of anticoagulants TSH reflex Free T4 1 Month E03.9 - Hypothyroidism, unspecified, E78.5 - Hyperlipidemia, unspecified, J44.9 - Chronic obstructive pulmonary disease, unspecified, Z79.01 - rn long term care (current) use of anticoagulants Hemoglobin A1c 1 Month E03.9 - Hypothyroidism, unspecified, E78.5 - Hyperlipidemia, unspecified, J44.9 - Chronic obstructive pulmonary disease, unspecified, Z79.01 - assisted (current) use of anticoagulants Lipid Panel 1 Month E03.9 - Hypothyroidism, unspecified, E78.5 - Hyperlipidemia, unspecified, J44.9 - Chronic obstructive pulmonary disease, unspecified, Z79.01 - rn long term care (current) use of anticoagulants Complete Blood Count Auto Diff 1 Month E03.9 - Hypothyroidism, unspecified, E78.5 - Hyperlipidemia, unspecified, J44.9 - Chronic obstructive pulmonary disease, unspecified, Z79.01 - assisted (current) use of anticoagulants Medications: New pravastatin 20 mg PO DAILY 90 tabs 3RF Coding Level of Care Code Est Pt Prev Care >65y(10254) Diagnoses COPD (chronic obstructive pulmonary disease) J44.9 Hypothyroidism E03.9 Hyperlipidemia E78.5 Chronic anticoagulation Z79.01 Tubular adenoma of colon D12.6 Del Valle's esophagus K22.70 Depression with anxiety F41.8 DVT (deep venous thrombosis) I82.409
[2023-10-16 09:19] VITALS: BP 124/64; PULSE 93; O2SAT 95; BMI 31.8
== END 2023-10-16 10:14 | disposition home or self-care (01) ==
PROVIDERS: PCP Internal Medicine; Visit Provider Internal Medicine
DX: Z00.00 Encounter for general adult medical examination without abnormal findings (principal); J44.9 Chronic obstructive pulmonary disease, unspecified; I82.409 Acute embolism and thrombosis of unspecified deep veins of unspecified lower extremity; E03.9 Hypothyroidism, unspecified; E78.5 Hyperlipidemia, unspecified; Z79.01 Long term (current) use of anticoagulants; D12.6 Benign neoplasm of colon, unspecified; K22.70 Barrett's esophagus without dysplasia; F41.8 Other specified anxiety disorders
CPT/HCPCS: 99397

== ENCOUNTER 2023-12-19 07:51 | Outpatient (REF) | payer MEDICARE, MEDICAID, SELFPAY | END 2023-12-19 07:52 | disposition home or self-care (01) | LOC: HO.BBR 07:51 | PROVIDERS: PCP Internal Medicine; Visit Provider Internal Medicine Medical Oncology | DX: D75.1 Secondary polycythemia (principal) | CPT/HCPCS: 85014; 85018; 99195 ==

== ENCOUNTER 2023-12-19 08:10 | Outpatient (REF) | payer MEDICARE, SELFPAY ==
[2023-12-19 08:24] LABS: MANUAL DIFF FLAG NO
[2023-12-19 08:37] LABS: Imm Gran Abs Auto 0.08 X10*3/uL (0.00-0.03); Lymphocytes Absolute Auto 1.4 X10*3/uL (1.2-4.9); Lymphocytes Percent Auto 17.3 % (20-40); Mean Corpuscular HGB Conc 28.6 g/dl (31.0-35.0); Mean Corpuscular Hemoglobin 21.2 pg (27.0-33.0); Mean Corpuscular Volume 74.2 fL (80.0-98.0); Mean Platelet Volume 10.3 fL (9.4-12.3); Monocytes Absolute Auto 0.8 X10*3/uL (0.1-1.2); Monocytes Percent Auto 9.3 % (2-11); Neutrophils Absolute Auto 5.9 x10*3/uL (2.0-8.3); Neutrophils Percent Auto 72.4 % (45-73); Platelet Count 250 X10*3/uL (160-400); Red Blood Count 5.66 X10*6/uL (4.20-5.50); Red Cell Distribution Width 20.2 % (11.0-16.0); White Blood Count 8.1 X10*3/uL (4.8-10.8)
[2023-12-19 08:44] LABS: Estimated Average Glucose 111 mg/dL; Hemoglobin A1c % 5.5 % (<6.0)
[2023-12-19 09:19] LABS: Alanine Aminotransferase 14 U/L (0-31); Albumin Level 3.6 g/dL (3.5-5.0); Alkaline Phosphatase 81 U/L (39-117); Anion Gap 10 (12-20); Aspartate Amino Transferase 17 U/L (5-31); Bilirubin Total 0.3 mg/dL (0.0-1.0); Blood Urea Nitrogen 10 mg/dL (9-16); Carbon Dioxide 29 mmol/L (22-29); Chloride 106 mmol/L (96-108); Cholesterol 165 mg/dL (<200); Estimated Glomerular Filt Rate 57; Glucose Fasting 110 mg/dL (60-99); HDL Cholesterol 32 mg/dL (>40); LDL Cholesterol Calculated 102 mg/dL (<100); Potassium 4.4 mmol/L (3.3-5.1); Sodium 141 mmol/L (135-145); Total Protein 7.7 g/dL (6.5-8.0); Triglycerides 158 mg/dL (<150)
[2023-12-19 09:29] LABS: TSH reflex Free T4 3.45 uIU/mL (0.32-4.0); Vitamin D 25-OH Total 23.2 ng/mL (>30)
== END 2023-12-19 08:11 | disposition home or self-care (01) ==
LOC: HO.LAB 08:10
PROVIDERS: PCP Internal Medicine; Visit Provider Internal Medicine
DX: J44.9 Chronic obstructive pulmonary disease, unspecified (principal); E78.5 Hyperlipidemia, unspecified; E03.9 Hypothyroidism, unspecified; Z79.01 Long term (current) use of anticoagulants
CPT/HCPCS: 36415; 80053; 80061; 82306; 83036; 84443; 85025

== ENCOUNTER → 2024-02-26 13:31 | Outpatient (RCR) | payer MEDICARE, MEDICAID, SELFPAY ==
--- NOTE | 2020-05-30 11:29 | HO.HEMONCTE1 ---
[facility] Telehealth - Telehealth Location of Provider rendering services: HEM/ONC OFFICE. Patient Identification confirmed using: Name, : Yes Patient verbally consented to billing insurance company: Yes Patient informed of any privacy concerns related to visit: Yes Medical Summary - Medical Summary Date of Service: 06/02/20 Medical Summary: DIAGNOSIS: Erythrocytosis. CURRENT THERAPY: MONTHLY PHLEBOTOMY. HAD ONE ON 04/01 AND 05/03. Interval History Interval history: This is a pleasant 64-year-old lady, with whom a tele visit was held. She does feel rather fatigued, off and on. Her legs feel weak. 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 She has occasional chills. She feels cold all the time. She denies a fever. She complains of headaches and dizziness. She has shortness of breath. She has COPD. She uses an inhaler. Complains of diffuse joint pains including her hips knees ankles and hands. She smokes. She is down to 5 cigarettes a day from a couple of packs. She started smoking at the age of 18. She denies abdominal pain nausea vomiting heartburn indigestion. Her bowels are working without any gross blood in it. She enjoys a good appetite. She says she has gained weight. Lately, her back is itchy, usually after a Bath. She has been using a Back urologist physician. She denies any skin rash. Review of her labs in the computer revealed the following serial hemoglobin levels: Jun 12 10:55 16.6 May 05 13:22 17.4 Mar 24 11:17 17.7 Review of Systems - Constitutional Reports system reviewed and no additional complaints, except as documented, Reports anorexia, Reports chills, Reports daytime sleepiness, Reports fatigue, Reports lack of energy, Reports malaise, Reports weakness, Denies excessive sweating - Eyes Reports system reviewed and no additional complaints, except as documented - ENT Reports system reviewed and no additional complaints, except as documented - Cardiovascular Reports system reviewed and no additional complaints, except as documented, Reports shortness of breath with activity - Respiratory Reports no additional respiratory complaints - Gastrointestinal Reports system reviewed and no additional complaints, except as documented - Genitourinary Reports no additional female genitourinary complaints - Musculoskeletal Reports system reviewed and no additional complaints, except as documented - Integumentary/Breasts Skin/Breast: Reports no additional skin complaints - Neurologic Reports system reviewed and no additional complaints, except as documented, Reports dizziness - Psychiatric Reports system reviewed and no additional complaints, except as documented, Reports depression - Endocrine Reports no additional endocrine complaints - Hematologic/Lymphatic Reports system reviewed and no additional complaints, except as documented Home Medications and Allergies Home Medications Medication Instructions Recorded Confirmed Type buspirone 0.5 tab PO BID 05/30/20 05/30/20 History duloxetine 1 cap PO DAILY 05/30/20 05/30/20 History levothyroxine 1 tab PO DAILY 05/30/20 05/30/20 History omeprazole 1 cap PO DAILY 05/30/20 05/30/20 History umeclidinium-vilanterol [Anoro 1 puff PO DAILY 05/30/20 05/30/20 History Ellipta] Allergies Allergy/AdvReac Type Severity Reaction Status Date / Time Codeine Phosphate Allergy Unknown flushed Verified 05/23/20 15:07 codeine [Codeine] AdvReac Mild VOMITING/RA Unverified 03/17/20 14:41 SH Exam - Constitutional Present: no acute distress - Routine HEENT Exam Head: Present: normal inspection ENT: Present: mucous membranes moist - Routine Neck Exam Present: full ROM - Routine Respiratory Exam Present: CTAB - Routine Cardiovascular Exam Cardiovascular: Present: RRR, S1, S2 - Routine Abdominal Exam Present: soft, nontender - Routine Rectal Exam Patient deferred: digital exam - Routine Extremities Exam Present: nontender - Routine Skin Exam Present: intact - Routine Neurological Exam Present: alert, oriented X3 Progress Note: A/P (1) Erythrocytosis Status: Acute Assessment and plan: This is a pleasant 64-year-old lady with history of Erythrocytosis, dating back to March of 2010. Her hemoglobin from February 25 was 16.5. 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 She has been smoking like a chimney all her life. DIFFERENTIAL DIAGNOSIS: 1. P vera. 2. Renal tumor. 3. [place] syndrome. l proceeded with further evaluation. Checked CBC with manual diff: WBC 4.9, HGB 16.5, HCT 49.4, PLT 235. Checked carboxyhemoglobin: 14.1. I checked a JAK2 mutation to rule out P vera. This came back negative. l checked a urinalysis to rule out any hematuria: this came back negative. She has been started on a regiment of monthly phlebotomy. She had a therapeutic phlebotomy on May 03, hemoglobin at that time was 15.2. Prior to that she had one on April 01, was 16.2. CBC FROM 06/02: WBC 4.3, HGB 13.8, HCT 42.4, PLT 258. 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 GLU 79. a LB 3.7. Ca 8.8. Iron profile: 76/363/21/75. [place]: 8.7. CA 19-9: 6. PLAN: Will proceed with the next therapeutic phlebotomy. This is been scheduled for June 02, at the blood bank. I will check her labs at that time. She will return in 6 months for a follow-up visit. I urged her to keep working on quitting smoking. I did mention that she may not even need a phlebotomy, if she does. Thank you, CC: Dr. Emani Dalton. Code Status FULL CODE - Time Spent With Patient Total time spent is greater than 50% in coordination of care (as documented) at patient's floor/unit and/or counseling patient: 15 - 24 minutes
== END | disposition home or self-care (01) ==
LOC: HO.ONC 05-30 11:32
PROVIDERS: PCP Internal Medicine; Visit Provider Internal Medicine Medical Oncology
DX: D75.1 Secondary polycythemia (principal); F17.210 Nicotine dependence, cigarettes, uncomplicated
CPT/HCPCS: Q3014

== ENCOUNTER 2024-03-26 09:55 | Outpatient (REF) | payer MEDICARE, SELFPAY | END 2024-03-26 09:56 | disposition home or self-care (01) | LOC: HO.BBR 09:55 | PROVIDERS: PCP Internal Medicine; Visit Provider Internal Medicine Medical Oncology | DX: E83.110 Hereditary hemochromatosis (principal) | CPT/HCPCS: 85014; 85018; 99195 ==

== ENCOUNTER 2024-05-06 12:37 | Outpatient (REF) | payer MEDICARE, SELFPAY | END 2024-05-06 12:38 | disposition home or self-care (01) | LOC: HO.CT 12:37 | PROVIDERS: PCP Internal Medicine; Visit Provider Physician Assistant Medical | DX: Z12.2 Encounter for screening for malignant neoplasm of respiratory organs (principal); F17.210 Nicotine dependence, cigarettes, uncomplicated | CPT/HCPCS: 71271 ==

== ENCOUNTER 2024-06-29 09:49 | Outpatient (REF) | payer MEDICARE, SELFPAY | END 2024-06-29 09:50 | disposition home or self-care (01) | LOC: HO.BBR 09:49 | PROVIDERS: PCP Internal Medicine; Visit Provider Internal Medicine Medical Oncology | DX: D75.1 Secondary polycythemia (principal) | CPT/HCPCS: 85018 ==

== ENCOUNTER 2024-08-19 11:18 | Outpatient (AMB) | payer MEDICARE, SELFPAY ==
[2024-08-19 11:26] VITALS: BP 104/66; PULSE 86; RESP 20; TEMP 36.9; O2SAT 96; BMI 31.5
--- NOTE | 2024-08-19 11:26 | MHC.PC.OV ---
Vital Signs 08/19/24 11:26 Height 5 ft 7 in Weight 201 lb BMI 31.5 BP 104/66 Blood Pressure Location Rt brachial Position Sitting Respiration 20 Pulse 86 Pulse Source Pulse Oximeter Temp 98.5 F Temp Source Oral Pulse Oximetry (%) 96 Oxygen Delivery Method Room Air Intake Visit Reasons: Followup depression Intake Note: Pt is here today for a follow up visit on depression. Allergies codeine [Codeine] Allergy (Mild, Verified 08/19/24 11:29) vomiting/rash/flushed skin Medication List - Last Reconciled 08/19/24 by Emani Dalton MD albuterol sulfate 90 mcg/actuation 2 puffs inhalation Q6H PRN apixaban (Eliquis) 5 mg PO BID buspirone 10 mg PO BID cholecalciferol (vitamin D3) 1,250 mcg PO QWEEK duloxetine 60 mg PO DAILY ikowtrrqsmp-igrqzkdoq-nhalycur 100-62.5-25 mcg (Trelegy Ellipta) 1 inh inhalation DAILY levothyroxine 112 mcg PO DAILY omeprazole 20 mg PO DAILY pravastatin 20 mg PO DAILY pregabalin 200 mg PO BID trazodone 300 mg PO BEDTIME Tobacco use date assessed: 08/19/24 Fall risk assessment: 2 + Falls in past year Last assessed Fall Risk: 08/19/24 Dental Screening Dental Screen Date: 08/19/24 Did you have a dental visit in the last 12 months?: No Did you have a dental problem in the last 6 months where you did not have access to dental care?: No Was dental information given to patient?: Patient declined HPI Followup depression HPI Details Patient presents for the follow-up of COPD hypothyroidism hyperlipidemia chronic anxiety and depression. She reports worsening anxiety for the last 6 months. Patient used to see a counselor but because of not being able to pay for co-payment she has stopped the therapy about a year ago. Patient was established with a psychiatrist in the past but not for the last 2 years. She denies change in appetite or sleep pattern, homicidal or suicidal ideation. [facility] Medical History (Updated 08/19/24 @ 12:22 by Emani Dalton MD) Nicotine dependence, cigarettes, uncomplicated H/O radioactive iodine thyroid ablation Graves disease Syncope Colon polyp DVT (deep venous thrombosis) Polycythemia Hyperlipidemia Mammogram normal Hypothyroidism Carpal tunnel syndrome of right wrist PTSD (post-traumatic stress disorder) COPD (chronic obstructive pulmonary disease) Warthin's tumor Graves disease Constipation Insomnia Depression with anxiety Fibromyalgia Surgical History Hx of superficial parotidectomy Hx of excision of mass History of esophagogastroduodenoscopy (EGD) H/O knee surgery History of appendectomy H/O colonoscopy S/P STEPHANI-BSO Family History Father Cancer Mother Stroke CAD (coronary artery disease) Brother No problems noted. Other Substance use disorder Social History Household Members: None Housing: House Are you a primary director of health care marketing to a significant other at home: No Do you presently have visiting nurse or other home services: No Alcohol intake: never Patient Tobacco Use Status: Current everyday Tobacco user Cigarette Packs Per Day: 1 Cigarettes Per Day: 20.0 Years Smoked: 46 e-Cigarette/Vaping Use: Never Used service: No Current occupational status: disabled Cognitive needs: No Hearing needs: No Vision needs: No Questionnaire PHQ-9 Over the last 2 weeks, how often have you been bothered by any of the following problems? 1. Little interest or pleasure in doing things: nearly every day 2. Feeling down, depressed, or hopeless: nearly every day 3. Trouble falling or staying asleep, or sleeping too much: nearly every day 4. Feeling tired or having little energy: nearly every day 5. Poor appetite or overeating: nearly every day 6. Feeling bad about yourself - or that you are a failure or have let yourself or your family down: nearly every day 7. Trouble concentrating on things, such as reading the newspaper or watching television: nearly every day 8. Moving or speaking so slowly that other people could have noticed. Or the opposite - being so fidgety or restless that you have been moving around a lot more than usual: not at all 9. Thoughts that you would be better off or of hurting yourself in some way: not at all Total score: 21 Depression Screening Interpretation: Positive (Patient will get reestablished with a therapist and a Psychiatry) Depression Screening Follow-up: Existing condition and In treatment Depression Screening Done: Yes 03501 - PHQ-9 Billing: Yes Source: Developed by Drs. Arnav Carl, Oralia Benedict, Ray Porter and colleagues, with an educational shailesh from [employer]. Thrive Questionnaire Date Thrive assessed: 08/19/24 I am a: Patient What is your living situation today?: I have a steady place to live Within the past 12 months, did the food you bought not last and you didn't have the money to get more?: Never true Within the past 12 months, did you worry whether your food would run out before you got money to buy more?: Sometimes True Do you have trouble paying for medicines?: No Do you have trouble getting transportation to medical appointments?: Yes Do you have trouble paying your heating and electricity bill?: No Do you have trouble taking care of your child, family member or friend?: No Do you have trouble with day-to-day activities such as bathing, preparing meals, shopping, managing finances, etc.?: Yes Are you currently unemployed and looking for a job?: No Are you interested in more education?: No Please select the resources that you would like help with: Transportation and Daily support THRIVE Score: 2 JORGE-7 AMB Questionnaire JORGE-7 Date JORGE - 7 assessed: 08/19/24 Feeling nervous, anxious, or on edge: 3 = Nearly every day Not being able to stop or control worryin = Nearly every day Worrying too much about different things: 3 = Nearly every day Trouble relaxin = Nearly every day Being so restless that it is hard to sit still: 3 = Nearly every day Becoming easily annoyed or irritable: 3 = Nearly every day Feeling afraid as if something awful might happen: 3 = Nearly every day Total JORGE-7 score (0-4 normal; 5-9 mild; 10-14 moderate; 15-21 severe): 21 Source: Developed by Drs. Arnav Carl, Ray Cornelius and colleagues, with an educational shailesh from [employer]. JORGE-7 Assessment Billing JORGE-7 Assessment Tool: JORGE-7 Assessment 53863 Review of Systems Const All systems reviewed & are unremarkable except as noted in HPI and below Eyes Reports no additional complaints ENT Reports no additional complaints Card Reports no additional complaints Resp Reports no additional complaints GI Reports no additional complaints Reports no additional complaints Physical exam (Primary Care) Vital Signs: Last Vital Signs Temp 98.5 F 08/19/24 11:26 Pulse 86 08/19/24 11:26 Resp 20 08/19/24 11:26 BP 104/66 08/19/24 11:26 Pulse Ox 96 08/19/24 11:26 Oxygen Delivery Method Room Air 08/19/24 11:26 BMI result Body Mass Index 31.5 Tobacco/Smoking Status: Tobacco use Status Tobacco use date assessed 08/19/24 08/19/24 11:33 Patient Tobacco Use Status Current everyday Tobacco 08/19/24 11:33 e-Cigarette/Vaping Use Never Used 08/19/24 11:33 PHQ-9: PHQ-9 Score PHQ-9: Total score 21 08/19/24 11:39 Depression Screening Interpretation: Positive (Patient will get reestablished with a therapist and a Psychiatry) Depression Screening Follow-up: Existing condition and In treatment Thrive Assessment: Date of Thrive Assessment Date Thrive assessed 08/19/24 08/19/24 11:39 Const General: no acute distress HENMT Head: Yes normal to inspection Neck Neck: Yes no lymphadenopathy and Yes supple Resp Effort & Inspection: normal respiratory effort Auscultation: diminished lung sounds Cardio Rhythm: regular rhythm Heart sounds: S1 normal heart sound present and S2 normal heart sound present GI Inspection: Yes normal to inspection Palpation (GI): Soft to palpation Percussion: Yes normal to percussion Auscultation: normal bowel sounds Coding Level of Care Code Est Pt Level 4 (59602) Complex EM visit Add On G2211 Diagnoses COPD (chronic obstructive pulmonary disease) J44.9 Anxiety and depression F41.9; F32.A Nicotine dependence, cigarettes, uncomplicated F17.210 Hyperlipidemia E78.5 Hypothyroidism E03.9 Personal history of colonic polyps Z86.010 Additional Codes JORGE-7 Assessment Billing - JORGE-7 Assessment Tool: JORGE-7 Assessment 22455 ([id number]) PHQ-9 - 06702 - PHQ-9 Billing: Yes ([id number]) Assessment & Plan Assessment & Plan (1) COPD (chronic obstructive pulmonary disease): Code(s): J44.9 - Chronic obstructive pulmonary disease, unspecified Category: Medical Plan: Continue Trelegy, tobacco quitting discussed with the patient. (2) Anxiety and depression: Code(s): F41.9 - Anxiety disorder, unspecified; F32.A - Depression, unspecified Category: Medical Plan: Continue current medication increase buspirone to 20 mg twice a day. Patient will call her counselor and get reestablished with counseling and a psychiatrist (3) Nicotine dependence, cigarettes, uncomplicated: Comment: (smoker >20pyH) Code(s): F17.210 - Nicotine dependence, cigarettes, uncomplicated Category: Medical Plan: Tobacco quitting discussed with the patient . she is in lung cancer screening program at [facility] (4) Hyperlipidemia: Code(s): E78.5 - Hyperlipidemia, unspecified Category: Medical Plan: Continue statin (5) Hypothyroidism: Code(s): E03.9 - Hypothyroidism, unspecified Category: Medical Plan: Continue levothyroxine check TSH today. (6) Personal history of colonic polyps: Code(s): Z86.010 - Personal history of colon polyps Category: Medical Plan: Patient missed her appointment with [facility] and will call to reschedule. she is due for repeat colonoscopy Orders: Orders Comprehensive [place]. Panel Fast 6 Months E03.9 - Hypothyroidism, unspecified, E78.5 - Hyperlipidemia, unspecified, J44.9 - Chronic obstructive pulmonary disease, unspecified Complete Blood Count Auto Diff 6 Months E03.9 - Hypothyroidism, unspecified, E78.5 - Hyperlipidemia, unspecified, J44.9 - Chronic obstructive pulmonary disease, unspecified TSH reflex Free T4 Today F32.A - Depression, unspecified, F41.9 - Anxiety disorder, unspecified, J44.9 - Chronic obstructive pulmonary disease, unspecified Aspergillus Ag EIA Today F32.A - Depression, unspecified, F41.9 - Anxiety disorder, unspecified, J44.9 - Chronic obstructive pulmonary disease, unspecified Lipid Panel 6 Months E03.9 - Hypothyroidism, unspecified, E78.5 - Hyperlipidemia, unspecified, J44.9 - Chronic obstructive pulmonary disease, unspecified Vitamin D 25-OH Total 6 Months E03.9 - Hypothyroidism, unspecified, E55.9 - Vitamin D deficiency, unspecified, E78.5 - Hyperlipidemia, unspecified, J44.9 - Chronic obstructive pulmonary disease, unspecified TSH reflex Free T4 6 Months E03.9 - Hypothyroidism, unspecified, E78.5 - Hyperlipidemia, unspecified, J44.9 - Chronic obstructive pulmonary disease, unspecified Medications: Changed From buspirone 10 mg PO BID 180 tabs 3RF To buspirone 20 mg (2 x 10 mg) PO BID 360 tabs 3RF Refilled buspirone 10 mg PO BID 180 tabs 3RF pregabalin 200 mg PO BID 180 caps 2RF
== END 2024-08-19 12:07 | disposition home or self-care (01) ==
PROVIDERS: PCP Internal Medicine; Visit Provider Internal Medicine
DX: J44.9 Chronic obstructive pulmonary disease, unspecified (principal); F41.9 Anxiety disorder, unspecified; F32.A Depression, unspecified; F17.210 Nicotine dependence, cigarettes, uncomplicated; E78.5 Hyperlipidemia, unspecified; E03.9 Hypothyroidism, unspecified; Z86.0100 Personal history of colon polyps, unspecified

== ENCOUNTER → 2024-08-19 11:18 | Outpatient (BNVA) | payer MEDICARE, SELFPAY | PROVIDERS: PCP Internal Medicine; Visit Provider Internal Medicine | DX: J44.9 Chronic obstructive pulmonary disease, unspecified (principal); F41.9 Anxiety disorder, unspecified; F32.A Depression, unspecified; E03.9 Hypothyroidism, unspecified; E78.5 Hyperlipidemia, unspecified; F17.210 Nicotine dependence, cigarettes, uncomplicated; Z71.6 Tobacco abuse counseling | CPT/HCPCS: 96127; 99212 ==

== ENCOUNTER 2025-01-27 11:16 | Outpatient (REF) | payer MEDICARE, MEDICAID, SELFPAY ==
[2025-01-27 14:46] LABS: Alanine Aminotransferase 9 U/L (0-31); Albumin Level 4.1 g/dL (3.5-5.0); Alkaline Phosphatase 72 U/L (39-117); Anion Gap 15 (12-20); Aspartate Amino Transferase 23 U/L (5-31); Blood Urea Nitrogen 11 mg/dL (9-16); Calcium 9.3 mg/dL (8.4-10.2); Carbon Dioxide 29 mmol/L (22-29); Chloride 100 mmol/L (96-108); Cholesterol 184 mg/dL (<200); Estimated Glomerular Filt Rate 48; HDL Cholesterol 39 mg/dL (>40); Potassium 4.8 mmol/L (3.3-5.1); Sodium 139 mmol/L (135-145); Total Protein 7.8 g/dL (6.5-8.0); Triglycerides 132 mg/dL (<150)
[2025-01-27 14:55] LABS: Folate 4.5 ng/mL (> or = 4.0); Vitamin B12 211 pg/mL (200-900)
[2025-01-27 15:56] LABS: Free T4 (Free Thyroxine) 1.02 ng/dL (0.71-1.85)
[2025-01-28 14:13] LABS: Lyme Blot 1.96 index
[2025-01-29 11:29] LABS: Lyme Abs Screen POSITIVE
[2025-02-05 21:24] LABS: 39KD (IgG) Band REACTIVE; 41KD (IgG) Band NON-REACTIVE; Lyme IgG Blot Interp NEGATIVE (NEGATIVE); Lyme IgM Blot Interp NEGATIVE (NEGATIVE)
== END 2025-01-27 11:17 | disposition home or self-care (01) ==
LOC: HO.HMGCLDS 11:16
PROVIDERS: PCP Internal Medicine; Visit Provider Internal Medicine
DX: J44.9 Chronic obstructive pulmonary disease, unspecified (principal); E03.9 Hypothyroidism, unspecified; E55.9 Vitamin D deficiency, unspecified; I63.9 Cerebral infarction, unspecified; F41.8 Other specified anxiety disorders; R53.1 Weakness; F17.210 Nicotine dependence, cigarettes, uncomplicated; R25.1 Tremor, unspecified; M48.061 Spinal stenosis, lumbar region without neurogenic claudication; E53.8 Deficiency of other specified B group vitamins; I82.409 Acute embolism and thrombosis of unspecified deep veins of unspecified lower extremity; Z12.31 Encounter for screening mammogram for malignant neoplasm of breast; Z79.01 Long term (current) use of anticoagulants; Z79.51 Long term (current) use of inhaled steroids; Z23 Encounter for immunization; Z79.899 Other long term (current) drug therapy; Z79.890 Hormone replacement therapy
CPT/HCPCS: 36415; 80053; 80061; 82306; 82607; 82746; 84425; 84439; 84443; 86617; 86618; 90471; 90677; 96127

== ENCOUNTER 2025-01-27 11:16 | Outpatient (AMB) | payer MEDICARE, MEDICAID, SELFPAY ==
--- NOTE | 2025-01-27 11:35 | A.OFFVIS_ITS ---
Intake Vital Signs 01/27/25 11:36 Height 5 ft 7 in Weight 202 lb BMI 31.6 BP 116/78 Blood Pressure Location Rt brachial Position Sitting Respiration 20 Pulse 83 Pulse Source Pulse Oximeter Temp 98.1 F Temp Source Oral Pulse Oximetry (%) 93 Oxygen Delivery Method Room Air Intake Visit Reasons: AWV G0438 Allergies codeine (Codeine) Allergy (Mild, Verified 01/27/25 11:38) vomiting/rash/flushed skin Medication List - Last Reconciled 01/27/25 by Emani Dalton MD albuterol sulfate 90 mcg/actuation 2 puffs inhalation Q6H PRN apixaban (Eliquis) 5 mg PO BID buspirone 20 mg (2 x 10 mg) PO BID cholecalciferol (vitamin D3) 1,250 mcg PO QWEEK duloxetine 60 mg PO DAILY xstmmwbxifp-kzlpmslbp-cjkpjnxj 100-62.5-25 mcg (Trelegy Ellipta) 1 inh inhalation DAILY levothyroxine 112 mcg PO DAILY nicotine 1 patch transdermal DAILY omeprazole 20 mg PO DAILY pravastatin 20 mg PO DAILY pregabalin 200 mg PO BID trazodone 300 mg PO BEDTIME HPI AWV G0438 HPI Details Patient presents for a physical. She complains of 1 month of right lower and upper extremity weakness for 1 month, worse when trying to walk. Patient reports chronic lower back pain worse when standing for more than 10 minutes with pain radiating to both lower extremities. She denies any change in the bladder or bowel function. She has been ambulating with a walker.Initiated the conversation about Advanced Directives. Advanced Directives help? patients prepare for current and future decisions about their medical treatment? and place of care. Discussed with patient that it is a process where a patients? current condition and prognosis are reviewed, their wishes for information? regarding their illness are elicited, and likely medical dilemmas are presented? and options discussed. The form can be amended as needed, reviewed yearly and? make changes as needed IPPE/AWV ? year old presents? for her ? Annual? Wellness Visit, initial visit.? Medical / Social History Reviewed? Past Medical History ?Yes? . ? [place]? of Care / Care Team list updated ?Yes . ? Surgical/Hospitalization? History ?Yes . ? Current Medications? (including OTC and supplements) ?Yes . ? Family History ?Yes? . ? Tobacco? Control form ?Yes . ? AUDIT-C (Alcohol use) form? ?Yes . ? Illicit drug use in Social? History ?Yes . ? Current diagnosis of? depression? ?No ? Appropriate PHQ2/PHQ9? completed ?Yes . ? Data entered by ?Medical? Ticket Collector Or Usher and reviewed by provider ? Fall Risk ? Fall? History? Have you had any falls with? injury in the past year? ?No . ? Have you had two or more? falls in the past year? ?No . ? Fall Risk Assessment: ?No? falls in the past year . ? HRA filled out by? the patient, reviewed by Provider and scanned. ? IPPE/AWV ? Balance? [place]? ?Yes . ? Tandem? walk ?Yes . ? Walk and? Turn ?Yes . ? Rise from? sit to stand ?Yes . ?Vision? Corrective? lens ?Yes ? Vision? screen ? Up-to-date, has an appointment [] for vision? screening and glaucoma screening ?Hearing? Whisper? test ?pass .? Initiated the conversation about Advanced Directives. Advanced Directives help? patients prepare for current and future decisions about their medical treatment? and place of care. Discussed with patient that it is a process where a patients? current condition and prognosis are reviewed, their wishes for information? regarding their illness are elicited, and likely medical dilemmas are presented? and options discussed. The form can be amended as needed, reviewed yearly and? make changes as needed Written? Plan?Completed. See Patient? Documents. [facility] Medical History (Updated 01/27/25 @ 12:29 by Emani Dalton MD) Tremor Del Valle's esophagus Nicotine dependence, cigarettes, uncomplicated H/O radioactive iodine thyroid ablation Graves disease Syncope Colon polyp DVT (deep venous thrombosis) Polycythemia Hyperlipidemia Mammogram normal Hypothyroidism Carpal tunnel syndrome of right wrist PTSD (post-traumatic stress disorder) COPD (chronic obstructive pulmonary disease) Warthin's tumor Graves disease Constipation Insomnia Depression with anxiety Fibromyalgia Surgical History (Updated 01/27/25 @ 12:22 by Emani Dalton MD) Hx of superficial parotidectomy Hx of excision of mass History of esophagogastroduodenoscopy (EGD) H/O knee surgery History of appendectomy H/O colonoscopy S/P STEPHANI-BSO Family History Father Cancer Mother Stroke CAD (coronary artery disease) Brother No problems noted. Other Substance use disorder Social History Household Members: None Housing: House Are you a primary aged or disabled care worker to a significant other at home: No Do you presently have visiting nurse or other home services: No Alcohol intake: never Patient Tobacco Use Status: Current everyday Tobacco user Cigarette Packs Per Day: 1 Cigarettes Per Day: 20.0 Years Smoked: 46 e-Cigarette/Vaping Use: Never Used service: No Current occupational status: disabled Cognitive needs: No Hearing needs: No Vision needs: No Questionnaire Medicare Wellness Checkup What [age] 65-71 What gender do you identify with?: female During the past 4 weeks, how much have you been bothered by emotional problems such as feeling anxious, depressed, irritable, sad or downhearted, and blue?: not at all During the past 4 weeks, has your physical & emotional health limited your social activities with family, friends, neighbors, or groups?: not at all During the past 4 weeks, how much bodily pain have you generally had?: moderate pain During the past 4 weeks, was someone available to help you if you needed & wanted help?: yes, a little During the past 4 weeks, what was the hardest physical activity you could do for at least 2 minutes?: moderate Can you get to places out of walking distance without help? (For eg., can you travel alone on buses, taxis or drive your car?): No Can you go shopping for groceries or clothes without someone's help?: No Can you prepare your own meals?: No Can you do your housework without help?: No Because of any health problems, do you need the help of another person with your personal care needs such as eating, bathing, dressing or getting around the house?: No Can you handle your own money without help?: Yes During the past 4 weeks, how would you rate your health in general?: good During the past 4 weeks how have things been going for you?: good & bad parts about equal Are you having difficulties driving your car?: not applicable, I don't use a car Do you always fasten your seat belt when you are in a car?: yes, usually During past 4 weeks, have you been bothered by the following: never: Falling or dizzy when standing up, Sexual problems?, Trouble eating well?, Teeth or denture problems?, Problems using the telephone? and Tiredness or fatigue? Have you fallen 2 or more times in the past year?: Yes Are you afraid of falling?: Yes Are you a smoker?: yes, but I'm not ready to quit During the past 4 weeks, how many drinks of wine, beer, or other alcoholic beverages did you have?: no alcohol at all Do you exercise for about 20 minutes 3 or more times a week?: yes, some of the time Have you been given information to help with the following?: yes: Keeping track of your medications? and no: Hazards in your house that might hurt you? How often do you have trouble taking medicines the way you have been told to take them?: I always take medicine as prescribed How confident are you that you can control & manage most of your health problems?: somewhat confident What is your race?: White Mini Mental State Exam (MMSE) Orientation What is the (year) (season) (date) (day) (month)?: year, season, date, day and month Where are we (state) (county) (town or city) (hospital) (floor)?: state, county, town or city, hospital/clinic and floor Registration Name of 3 unrelated objects clearly and slowly, then ask patient to repeat all 3 of them. (1st repeat determines score. Make sure they can repeat all three): object 1, object 2 and object 3 Attention & Calculation (CHOOSE ONE) Spell WORLD backwards (DLROW): 5 letters Recall Ask patient to repeat the 3 items from question #3.: object 1, object 2 and object 3 Language Show patient a wristwatch & ask what it is. Repeat for pencil.: watch and pencil Ask the patient to repeat the phrase 'No ifs, ands, or buts' after you.: correct Ask the patient to 'take a piece of paper with their right hand' 'fold paper in half' 'place paper on floor': take paper in right hand, fold paper in half and place paper on floor Print the sentence 'CLOSE YOUR EYES' on a piece. If patient actually closes eyes then score.: followed written direction Give patient a blank piece of paper & ask to write a sentence. Score if it contains a noun & verb.: sentence contains subject and verb Score Score: 29 PHQ-9 Over the last 2 weeks, how often have you been bothered by any of the following problems? 1. Little interest or pleasure in doing things: several days 2. Feeling down, depressed, or hopeless: several days 3. Trouble falling or staying asleep, or sleeping too much: not at all 4. Feeling tired or having little energy: several days 5. Poor appetite or overeating: several days 6. Feeling bad about yourself - or that you are a failure or have let yourself or your family down: not at all 7. Trouble concentrating on things, such as reading the newspaper or watching television: several days 8. Moving or speaking so slowly that other people could have noticed. Or the opposite - being so fidgety or restless that you have been moving around a lot more than usual: several days 9. Thoughts that you would be better off or of hurting yourself in some way: not at all Total score: 6 Depression Screening Interpretation: Negative Depression Screening Done: Yes 33737 - PHQ-9 Billing: Yes Source: Developed by Drs. Arnav Carl, Oralia Benedict, Ray Porter and colleagues, with an educational shailesh from [employer]. Review of Systems Const All systems reviewed & are unremarkable except as noted in HPI and below Eyes Reports no additional complaints ENT Reports no additional complaints Card Reports no additional complaints Resp Reports no additional complaints GI Reports no additional complaints Reports no additional complaints Physical Exam Vital Signs: Last Vital Signs Temp 98.1 F 01/27/25 11:36 Pulse 83 01/27/25 11:36 Resp 20 01/27/25 11:36 BP 116/78 01/27/25 11:36 Pulse Ox 93 01/27/25 11:36 Oxygen Delivery Method Room Air 01/27/25 11:36 BMI result Body Mass Index 31.6 Const General: no acute distress HEENT Head: Yes normal to inspection Ears: hearing grossly normal bilaterally Neck Neck: Yes no lymphadenopathy and Yes supple Resp Effort & Inspection: normal respiratory effort Auscultation: clear to auscultation bilaterally Cardio Rhythm: regular rhythm Heart sounds: S1 normal heart sound present and S2 normal heart sound present GI Inspection: Yes normal to inspection Palpation (GI): Soft to palpation Percussion: Yes normal to percussion Auscultation: normal bowel sounds Neuro Other: Right upper extremity strength is 4 to 5/5 weaker distally than proximally, rig ht lower extremity strength is 4 to 5/5 Cranial nerves: Yes CN's II-XII intact bilaterally Gait exam (Neuro): Shuffling gait present Extrem General: Yes no clubbing, cyanosis or edema Immunizations pneumoc 20-marta conj-dip cr(PF) 0.5 mL IM syringe Performing Provider: Emani Dalton MD Performing Location: [facility] Administered by: MANJULA Rubio on 01/27/25 12:12 Dose Route Admin Location Dispensed Lot Number Expiration Date [facility] Test Preparation Tutor 0.5 mL IM Left Deltoid 0.5 mL [id number] 01/28/26 4776-3152-77 [employer] /[employer] Total Dispensed Waste 0.5 mL 0 % VIS Given Date VIS Provided VIS Publication Date 01/27/25 Single Vaccine 24 Eligibility Eligibility Date Funding Source Not [facility] Eligible 01/27/25 Private Assessment & Plan Assessment & Plan (1) COPD (chronic obstructive pulmonary disease): Code(s): J44.9 - Chronic obstructive pulmonary disease, unspecified Plan: Continue Trelegy tobacco quitting discussed with the patient. She would like to try a nicotine patch (2) Hypothyroidism: Code(s): E03.9 - Hypothyroidism, unspecified Plan: Continue levothyroxine check TSH (3) Vitamin D deficiency: Code(s): E55.9 - Vitamin D deficiency, unspecified Plan: Continue vitamin-D supplement check the level (4) CVA (cerebral vascular accident): Comment: R side weakness Code(s): I63.9 - Cerebral infarction, unspecified Plan: For right side weakness CT of the brain will be obtained to rule out CVA. 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 Patient declined physical therapy. (8) Tremor: Code(s): R25.1 - Tremor, unspecified Plan: For chronic tremor pt is referred to Neurology Orders: Orders CT head/brain wo IV con Today I63.9 - Cerebral infarction, unspecified Comprehensive Met. Panel Today E03.9 - Hypothyroidism, unspecified, E55.9 - Vitamin D deficiency, unspecified, J44.9 - Chronic obstructive pulmonary disease, unspecified XR lumbar spine 2-3V Today E03.9 - Hypothyroidism, unspecified, E55.9 - Vitamin D deficiency, unspecified, J44.9 - Chronic obstructive pulmonary disease, unspecified TSH reflex Free T4 Today E03.9 - Hypothyroidism, unspecified MM screening mammo BI Today Z12.31 - Encounter for screening mammogram for malignant neoplasm of breast Vitamin B12 and Folate Today E53.8 - Deficiency of other specified B group vitamins, E55.9 - Vitamin D deficiency, unspecified Lyme IgG/IgM w/reflex to WB Today E03.9 - Hypothyroidism, unspecified, E55.9 - Vitamin D deficiency, unspecified, J44.9 - Chronic obstructive pulmonary disease, unspecified Lipid Panel Today E03.9 - Hypothyroidism, unspecified, E55.9 - Vitamin D deficiency, unspecified, J44.9 - Chronic obstructive pulmonary disease, unspecified Pneumococcal 20 Immunization Today Z23 - Encounter for immunization Vitamin D 25-OH Total Today E53.8 - Deficiency of other specified B group vitamins, E55.9 - Vitamin D deficiency, unspecified Vitamin B1 Today E53.8 - Deficiency of other specified B group vitamins, E55.9 - Vitamin D deficiency, unspecified Referrals Neurology Referral R25.1 - Tremor, unspecified Medications: New nicotine 1 patch transdermal DAILY 28 ea 6RF Quality Reporting (2019) Depression/Bipolar (159/160/161/177) PHQ-9: Total score: 6 Coding Level of Care Code Medicare Subsequent (G0439) Diagnoses COPD (chronic obstructive pulmonary disease) J44.9 Hypothyroidism E03.9 Vitamin D deficiency E55.9 CVA (cerebral vascular accident) I63.9 Depression with anxiety F41.8 DVT (deep venous thrombosis) I82.409 Degenerative lumbar spinal stenosis M48.061 Tremor R25.1 CPT Codes Advance Care Planning - Advance Care Planning discussion: On file, no changes ([id number]) Advance Care Planning - Time spent: 1-15 minutes, on File ([id number]) Additional Codes PHQ-9 - 62040 - PHQ-9 Billing: Yes ([id number]) Advance Care Planning Advance Care Planning discussion: On file, no changes Forms completed: Health Care Proxy Time spent: 1-15 minutes, on File Did not discuss due to Cultural/Spiritual beliefs: Yes
[2025-01-27 11:36] VITALS: BP 116/78; PULSE 83; RESP 20; TEMP 36.7; O2SAT 93; BMI 31.6
--- OUTSIDE RECORDS SUMMARY | 2025-01-27 12:20 | XMS_ITS | Encounter Summary ---
Author Organization [facility] Address [address] [place] [id number] Phone Care Team Providers Care Ship Captain Name Role Phone Emani Dalton MD Primary Care Provider [phone] Encounter Details Date Type Department Care Team (Late st Contact Info) Description 01/05/2020 Transcribe Orders [facility] [address] [place] [id number] Emani Dalton MD [address] [place] [address] [place] [address] Chronic bronchitis, unspecified chronic bronchitis type (Primary Dx) Social History Tobacco Use Types Packs/Day Years Used Date Smoking Tobacco: Never Assessed Comments Unknown Sex and Gender Information Value Date Recorded Sex Assigned at Female 11/25/2022 11:37 AM EDT Legal Sex Female 10:35 PM EDT Gender Identity Female 11/25/2022 11:37 AM EDT Sexual Orientation Not on file documented as of this encounter Plan of Treatment Not on file documented as of this encounter Results * (ABNORMAL) CBC (01/05/2020 8:01 AM EDT) WBC 4.83 4.00 - 11.00 K/uL [facility] Comment:Note Reference Range updates to all CBC and Differential results. RBC 5.19 3.72 - 5.30 M/uL [facility] HGB 16.9(H) 11.4 - 15.9 g/dL [facility] Comment:Note updated Referen ce Ranges for all CBC and Differential results. HCT 49.2(H) 34.2 - 46.8 % [facility] PLT 216 140 - 430 K/uL [facility] MCV 94.8 78.0 - 97.0 fL [facility] MCH 32.6 25.0 - 33.0 pg [facility] MCHC 34.3 32.0 - 36.0 g/dL [facility] RDW 12.1 11.0 - 16.0 % [facility] MPV 11.2 8.4 - 12.8 fl [facility] NRBC 0.00 0 /100 WBCs [facility] ABSOLUTE NRBC 0.00 0 K/uL [facility] Blood 01/05/2020 8:01 AM EDT 01/05/2020 8:26 AM EDT Emani Dalton MD LAB BLOOD ORDERABLES Final Re sult Performing Organization Address [facility] Co de Phone Number [address] [address] * Ferritin (01/05/2020 8:01 AM EDT) FERRITIN 119 13 - 150 ug/L [facility] Blood 01/05/2020 8:01 AM EDT 01/05/2020 8:26 AM EDT Emani Dalton MD LAB BLOOD ORDERABLES Final Re sult Performing Organization Address [facility] Co de Phone Number [address] [address] * Iron and iron binding capacity (01/05/2020 8:01 AM EDT) IRON 92 30 - 160 ug/dL [facility] IRON BINDING CAPACITY 339 228 - 428 ug/dL [facility] TRANSFERRIN SATURAT. 27 15 - 50 % [facility] Blood 01/05/2020 8:01 AM EDT 01/05/2020 8:26 AM EDT Emani Dalton MD LAB BLOOD ORDERABLES Final Re sult Performing Organization Address City/[facility] Co de Phone Number [address] [address] * TSH (01/05/2020 8:01 AM EDT) TSH 1.21 0.27 - 4.20 uIU/mL [facility] Blood 01/05/2020 8:01 AM EDT 01/05/2020 8:26 AM EDT Emani Dalton MD LAB BLOOD ORDERABLES Final Re sult Performing Organization Address [facility] Co de Phone Number [address] [address] * Lipid panel (01/05/2020 8:01 AM EDT) HDL 51 mg/dL [facility] Comment: Interpretation <40 mg/dL: Low HDL cholesterol (major risk factor for CHD) Greater than or equal to 60 mg/dL: High HDL cholesterol ( negative risk factor for CHD) HDL - cholesterol is affected by a number of factors, e.g. smoking, excerise, hormones, sex and age. CHOLESTEROL 167 0 - 240 mg/dL [facility] TRIGLYCERIDES 93 30 - 160 mg/dL [facility] LDL 97 50 - 129 mg/dL [facility] Comment: LDL levels in terms of risk for coronary heart disease: <100 mg/dL: Optimal 100-129 mg/dL: Near or above optimal 130-159 mg/dL: Borderline high 160-189 mg/dL: High >190 mg/dL: Very High CARDIAC RISK RATIO 3.3 3.3 - 4.4 C [facility] Blood 01/05/2020 8:01 AM EDT 01/05/2020 8:26 AM EDT Emani Dalton MD LAB BLOOD ORDERABLES Final Re sult Performing Organization Address [facility] Co de Phone Number [address] [address] * (ABNORMAL) Comprehensive metabolic panel (01/05/2020 8:01 AM EDT) SODIUM 137 133 - 146 mmol/L [facility] POTASSIUM 4.5 3.3 - 5.1 mmol/L [facility] CHLORIDE 103 96 - 108 mmol/L [facility] CO2 27 21 - 35 mmol/L [facility] BUN 12 6 - 19 mg/dL [facility] CREATININE 0.90 0.5 - 1.5 mg/dL [facility] GLUCOSE 102(H) 70 - 99 mg/dL [facility] ALBUMIN 4.2 3.9 - 4.8 g/dL [facility] TOTAL PROTEIN 7.6 6.5 - 8.0 g/dL [facility] CALCIUM 9.7 8.4 - 10.3 mg/dL [facility] ALKALINE PHOSPHATASE 66 39 - 117 U/L [facility] TOTAL BILIRUBIN 0.3 0.0 - 1.2 mg/dL [facility] AST 32 0 - 37 U/L [facility] ALT 12 0 - 40 U/L [facility] GLOBULIN 3.4 1 - 4.8 g/dL [facility] EGFR 69 >59 mL/min/1.7 3m2 [facility] Comment:Estimated glomerular filtration rate calculated using the CKD-EPI equation. ANION GAP 12 10 - 20 mmol/L [facility] Blood 01/05/2020 8:01 AM EDT 01/05/2020 8:26 AM EDT us Emani Dalton MD LAB BLOOD ORDERABLES Final Re sult [address] [address] documented in this encounter Visit Diagnoses Diagnosis Chronic bronchitis, unspecified chronic bronchitis type- Primary documented in this encounter Care Teams Ship Captain Relationship Specialty Start Date End Date Emani Dalton MD [address] [place] [address] PCP - General Internal Medicine 01/05/20 documented as of this encounter Additional Source Comments The information contained in this document represents components of the legal health record. It is not the complete legal health record.[facility]
== END 2025-01-27 12:54 | disposition home or self-care (01) ==
LOC: HO.HMCC 11:17
PROVIDERS: PCP Internal Medicine; Visit Provider Internal Medicine
DX: Z00.00 Encounter for general adult medical examination without abnormal findings (principal); J44.9 Chronic obstructive pulmonary disease, unspecified; I63.9 Cerebral infarction, unspecified; I82.409 Acute embolism and thrombosis of unspecified deep veins of unspecified lower extremity; E03.9 Hypothyroidism, unspecified; E55.9 Vitamin D deficiency, unspecified; F41.8 Other specified anxiety disorders; M48.061 Spinal stenosis, lumbar region without neurogenic claudication; R25.1 Tremor, unspecified; Z23 Encounter for immunization

== ENCOUNTER 2025-02-24 11:41 | Outpatient (REF) | payer MEDICARE, MEDICAID, SELFPAY ==
--- NOTE | ~2025-02-24 | CT_ITS ---
EXAMINATION: CT HEAD WITHOUT CONTRAST CLINICAL INFORMATION: Right-sided weakness, rule out CVA. COMPARISON: 05/08/2021. TECHNIQUE: Contiguous axial imaging was performed from the skull base to vertex without intravenous administration of contrast. This CT examination was performed using dose optimization techniques as appropriate, variously including the following: *Automated exposure control *Adjustment of mA and/or kV according to patient size (this includes techniques or standardized protocols for targeted exams where dose is matched to indication/reason for exam; i.e. extremities or head) *Use of iterative reconstruction technique FINDINGS: There is no evidence of intracranial hemorrhage or extra-axial fluid collection. There is no mass effect, or edema. No CT evidence of acute territorial infarct. Ventricles, sulci, and cisterns are normal in size and configuration for patient age. No hydrocephalus. No midline shift. Negative hyperdense MCA sign. Negative insular ribbon sign. No significant white matter attenuation abnormalities. Normal pituitary. Globes and orbital contents image normally. There are bilateral lens replacements. No extracranial soft tissue abnormalities. The paranasal sinuses, mastoid air cells, and tympanic cavities are normally aerated. No suspicious bony abnormalities. There are no acute fractures evident. CT/CT head/brain wo IV con IMPRESSION: No acute intracranial abnormalities. Electronically signed by: Shaggy Gil MD 02/24/2025 12:14 PM EDT
--- OUTSIDE RECORDS SUMMARY | 2025-02-24 12:39 | XMS_ITS | Clinical Summary ---
Author Organization [facility] Address [address] [facility] [address] [place] [address] Phone Care Team Providers Care Resident Programs Assistant Name Role Phone Emani Dalton MD Primary Care Provider [phone] Allergies Active Allergy Reactions Criticality Noted Date Comments Codeine 11/25/2022 Medications oxyCODONE 5 MG immediate release tablet Take 1 tablet (5 mg total) by mouth every 6 (six) hours as needed. Partial fill ok 10 tablet 11/25/2022 Active Social History Tobacco Use Types Packs/Day Years Used Date Smoking Tobacco: Every Day Cigarettes Smokeless Tobacco: Never Tobacco Cessation:Ready to Q uit: Not Asked; Counseling Given: Not Answered Alcohol Use Standard Drinks/Week Comments Not Currently 0 (1 standard drink = 0.6 oz pur e alcohol) Education Answer Date Recorded Are you interested in more education? Not on cecilia e 10/26/2022 Are you concerned about learning? Not on file 10/26/2022 No 10/26/2022 No 10/26/2022 Digital Access Answer Date Recorded No 11/25/2022 No 11/25/2022 No 11/25/2022 Reliable internet access at home? Not on file 11/25/2022 Device with a working camera? Not on file Intimate Partner Violence Answer Date R ecorded Are you denied basic needs s uch as food, clothing, or medical care? No 11/25/2022 In the past 12 months have y ou been in a relationship with a person who hurts, threatens, or tries to control you? No 11/25/2022 Are you denied basic needs s uch as food, clothing, or medical care? No 11/25/2022 In the past 12 months have y ou been in a relationship with a person who hurts, threatens, or tries to control you? No 11/25/2022 Comments Unknown Sex and Gender Information Value Date Recorded Sex Assigned at Female 11/25/2022 11:37 AM EDT Legal Sex Female 10:35 PM EDT Gender Identity Female 11/25/2022 11:37 AM EDT Sexual Orientation Not on file Last Filed Vital Signs Vital Sign Reading Time Taken Comments Blood Pressure 125/70 11/25/2022 3:05 PM EDT Pulse 65 11/25/2022 3:05 PM EDT Temperature 36.6 C (97.9 F) 11/25/2022 11:34 AM EDT Respiratory Rate 16 11/25/2022 3:05 PM EDT Oxygen Saturation 93% 11/25/2022 3:05 PM EDT Inhaled Oxygen Concentration - - Weight 83 kg (183 lb) 11/25/2022 11:34 AM EDT Height 170.2 cm (5' 7 ) 11/25/2022 11:34 AM EDT Body Mass Index 28.66 11/25/2022 11:34 AM EDT Plan of Treatment Not on file Medical Devices Not on file Insurance MEDICARE REPLACEMENT [facility] MEDICARE REPLACEMENT Member Subscriber Plan / Payer (Ef fective 2019-Present) Name:Dorie Schafer Relation to Subscriber:Self Name:Dorie Schafer Payer ID:[id number] (NAIC) Type:Medicare [address] [place] [facility] MEDICARE REPLACEMENT [facility] [place] [facility] [facility] MEDICARE REPLACEMENT [facility] Care Teams Resident Programs Assistant Relationship Specialty Start Date End Date Emani Dalton MD [facility] [place] [address] PCP - General Internal Medicine 01/05/20 Additional Source Comments The information contained in this document represents components of the legal health record. It is not the complete legal health record.[facility]
--- OUTSIDE RECORDS SUMMARY | 2025-02-24 12:39 | XMS_ITS | Encounter Summary ---
Author Organization [facility] Address [address] [facility] [address] [place] [address] Phone Care Team Providers Care Market Survey Representative Name Role Phone Emani Dalton MD Primary Care Provider [phone] Encounter Details Date Type Department Care Team (Late st Contact Info) Description 11/25/2022 Procedure Pass [facility], Ct Scan - [address] [address] Social History Tobacco Use Types Packs/Day Years Used Date Smoking Tobacco: Every Day Cigarettes Smokeless Tobacco: Never Alcohol Use Standard Drinks/Week Comments Not Currently [...] on file documented as of this encounter Functional Status * Calculated C-SSRS Risk Score (Lifetime/Recent) Answer Date of Assessment Author No Risk Indicated 11/25/2022 11:35 AM EDT Adri Wong RN * [place] Suicide Severity Rating Scale (Screener/Recent Self-Report) Question Answer Date of Assessment Author 1. Wish to be (Past 1 Month) No 023 11:35 AM EDT Adri Wong RN 2. Non-Specific Active Suici phong Thoughts (Past 1 Month) No 11/25/2022 11:35 AM EDT Adri Wong RN 6. Suicidal Behavior (Lifetime) No 11:35 AM EDT Adri Wong RN documented as of this encounter Plan of Treatment Not on file documented as of this encounter Visit Diagnoses Not on filedocumented in this encounter Care Teams Market Survey Representative Relationship Specialty Start Date End Date Emani Dalton MD [facility] [place] [address] PCP - General Internal Medicine 01/05/20 documented as of this encounter Additional Source Comments The information contained in this document represents components of the legal health record. It is not the complete legal health record.[facility]
--- OUTSIDE RECORDS SUMMARY | 2025-02-24 12:39 | XMS_ITS | Encounter Summary ---
Author Organization [facility] Address [address] [facility] [address] [place] [address] Phone Care Team Providers Care Office Clin Asst Name Role Phone Emani Dalton MD Primary Care Provider [phone] Encounter Details Date Type Department Care Team (Late st Contact Info) Description 01/05/2020 Transcribe Orders [facility] [address] [place] [address] Emani Dalton MD [address] [place] [address] [place] [address] Chronic bronchitis, unspecified chronic bronchitis type (Primary [...] EDT) WBC 4.83 4.00 - 11.00 K/uL [facility] Comment:Note Reference Range updates to all CBC and Differential results. RBC 5.19 3.72 - 5.30 M/uL [facility] HGB 16.9(H) 11.4 - 15.9 g/dL [facility] Comment:Note updated Referen ce Ranges for all CBC and Differential results. HCT 49.2(H) 34.2 - 46.8 % [facility] PLT 216 140 - 430 K/uL [facility] MCV 94.8 78.0 - 97.0 fL [facility] MCH 32.6 25.0 - 33.0 pg [facility] MCHC 34.3 32.0 - 36.0 g/dL [facility] RDW 12.1 11.0 - 16.0 % [facility] MPV 11.2 8.4 - 12.8 fl [facility] NRBC 0.00 0 /100 WBCs [facility] ABSOLUTE NRBC 0.00 0 K/uL [facility] Blood 01/05/2020 8:01 AM EDT 01/05/2020 8:26 AM EDT Emani Dalton MD LAB BLOOD ORDERABLES Final Re sult Performing Organization Address [facility] Co de Phone Number [address] [address] * Ferritin (01/05/2020 8:01 AM EDT) FERRITIN 119 13 - 150 ug/L [facility] Blood 01/05/2020 8:01 AM EDT 01/05/2020 8:26 AM EDT Emani Dalton MD LAB BLOOD ORDERABLES Final Re sult Performing Organization Address [facility] Co de Phone Number [address] [address] * Iron and iron binding capacity (01/05/2020 8:01 AM EDT) IRON 92 30 - 160 ug/dL [facility] IRON BINDING CAPACITY 339 228 - 428 ug/dL [facility] TRANSFERRIN SATURAT. 27 15 - 50 % [facility] Blood 01/05/2020 8:01 AM EDT 01/05/2020 8:26 AM EDT Emani Dalton MD LAB BLOOD ORDERABLES Final Re sult Performing Organization Address City/[facility] Co de Phone Number [address] [address] * TSH (01/05/2020 8:01 AM EDT) TSH 1.21 0.27 - 4.20 uIU/mL [facility] Blood 01/05/2020 8:01 AM EDT 01/05/2020 8:26 AM EDT Emani Dalton MD LAB BLOOD ORDERABLES Final Re sult Performing Organization Address [facility] Co de Phone Number [address] [address] * Lipid panel (01/05/2020 8:01 AM EDT) HDL 51 mg/dL [facility] Comment: Interpretation <40 mg/dL: Low HDL cholesterol (major risk factor for CHD) Greater than or equal to 60 mg/dL: High HDL cholesterol ( negative risk factor for CHD) HDL - cholesterol is affected by a number of factors, e.g. smoking, excerise, hormones, sex and age. CHOLESTEROL 167 0 - 240 mg/dL [facility] TRIGLYCERIDES 93 30 - 160 mg/dL [facility] LDL 97 50 - 129 mg/dL [facility] Comment: LDL levels in terms of risk for coronary heart disease: <100 mg/dL: Optimal 100-129 mg/dL: Near or above optimal 130-159 mg/dL: Borderline high 160-189 mg/dL: High >190 mg/dL: Very High CARDIAC RISK RATIO 3.3 3.3 - 4.4 C [facility] Blood 01/05/2020 8:01 AM EDT 01/05/2020 8:26 AM EDT Emani Dalton MD LAB BLOOD ORDERABLES Final Re sult Performing Organization Address [facility] Co de Phone Number [address] [address] * (ABNORMAL) Comprehensive metabolic panel (01/05/2020 8:01 AM EDT) SODIUM 137 133 - 146 mmol/L [facility] POTASSIUM 4.5 3.3 - 5.1 mmol/L [facility] CHLORIDE 103 96 - 108 mmol/L [facility] CO2 27 21 - 35 mmol/L [facility] BUN 12 6 - 19 mg/dL [facility] CREATININE 0.90 0.5 - 1.5 mg/dL [facility] GLUCOSE 102(H) 70 - 99 mg/dL [facility] ALBUMIN 4.2 3.9 - 4.8 g/dL [facility] TOTAL PROTEIN 7.6 6.5 - 8.0 g/dL [facility] CALCIUM 9.7 8.4 - 10.3 mg/dL [facility] ALKALINE PHOSPHATASE 66 39 - 117 U/L [facility] TOTAL BILIRUBIN 0.3 0.0 - 1.2 mg/dL [facility] AST 32 0 - 37 U/L [facility] ALT 12 0 - 40 U/L [facility] GLOBULIN 3.4 1 - 4.8 g/dL [facility] EGFR 69 >59 mL/min/1.7 3m2 [facility] Comment:Estimated glomerular filtration rate calculated using the CKD-EPI equation. ANION GAP 12 10 - 20 mmol/L [facility] Blood 01/05/2020 8:01 AM EDT 01/05/2020 8:26 AM EDT us Emani Dalton MD LAB BLOOD ORDERABLES Final Re sult [address] [address] documented in this encounter Visit Diagnoses Diagnosis Chronic bronchitis, unspecified chronic bronchitis type- Primary documented in this encounter Care Teams Office Clin Asst Relationship Specialty Start Date End Date Emani Dalton MD [address] [place] [address] PCP - General Internal Medicine 01/05/20 documented as of this encounter Additional Source Comments The information contained in this document represents components of the legal health record. It is not the complete legal health record.[facility]
== END 2025-02-24 11:42 | disposition home or self-care (01) ==
LOC: HO.CT 11:41
PROVIDERS: PCP Internal Medicine; Visit Provider Internal Medicine
DX: I63.9 Cerebral infarction, unspecified (principal); E03.9 Hypothyroidism, unspecified; E55.9 Vitamin D deficiency, unspecified; J44.9 Chronic obstructive pulmonary disease, unspecified
CPT/HCPCS: 70450

== ENCOUNTER → 2025-02-24 11:43 | Outpatient (BNV) | payer MEDICARE, MEDICAID, SELFPAY | PROVIDERS: PCP Internal Medicine; Visit Provider Radiology Diagnostic Radiology | DX: R53.1 Weakness (principal) | CPT/HCPCS: 70450 ==

== ENCOUNTER 2025-06-02 11:39 | Outpatient (AMB) | payer MEDICARE, MEDICAID, SELFPAY ==
--- NOTE | 2025-06-02 11:41 | A.OFFVIS_ITS ---
Intake Visit Reasons: r/s follow up from 04/07/25 Allergies codeine (Codeine) Allergy (Mild, Verified 01/27/25 11:38) vomiting/rash/flushed skin HPI Comments Details: The patient is a 69 year old individual presenting with progressive tremor, leg weakness, unsteadiness, and dizziness. The patient reports shaking for the last 3-4 months and was referred over a concern for a possible transient ischemic attack. The patient has been experiencing these symptoms, along with unsteadiness and dizziness, progressively for about a year. The patient has also noted long-standing, worsening weakness in the legs. The patient's medical history is significant for fibromyalgia, chronic obstructive pulmonary disease, emphysema, osteoarthritis, anxiety, depression, and insomnia. There is a history of multiple deep vein thromboses, including three in the left leg and two in the right leg, for which the patient takes Eliquis. The patient also reports chronic joint and back pain. The patient denies a history of diabetes. The patient's medications include trazodone, pregabalin, buspirone, and duloxetine. A head CT scan performed not too long ago was reported as normal. Review of prior imaging from 2020 and another recent year revealed mild cerebellar atrophy. The patient denies significant alcohol consumption. There is a history of exposure to Aspergillus mold in the patient's apartment. [facility] Medical History (Updated 06/02/25 @ 11:53 by Mukul Omalley MD) Tremor Del Valle's esophagus Nicotine dependence, cigarettes, uncomplicated H/O radioactive iodine thyroid ablation Graves disease Syncope Colon polyp DVT (deep venous thrombosis) Polycythemia Hyperlipidemia Mammogram normal Hypothyroidism Carpal tunnel syndrome of right wrist PTSD (post-traumatic stress disorder) COPD (chronic obstructive pulmonary disease) Warthin's tumor Graves disease Constipation Insomnia Depression with anxiety Fibromyalgia Surgical History Hx of superficial parotidectomy Hx of excision of mass History of esophagogastroduodenoscopy (EGD) H/O knee surgery History of appendectomy H/O colonoscopy S/P STEPHANI-BSO Family History Father Cancer Mother Stroke CAD (coronary artery disease) Brother No problems noted. Other Substance use disorder Social History Household Members: None Housing: House Are you a primary health care consultant to a significant other at home: No Do you presently have visiting nurse or other home services: No Alcohol intake: never Patient Tobacco Use Status: Current everyday Tobacco user Cigarette Packs Per Day: 1 Cigarettes Per Day: 20.0 Years Smoked: 46 e-Cigarette/Vaping Use: Never Used service: No Current occupational status: disabled Cognitive needs: No Hearing needs: No Vision needs: No Review of Systems Narrative Constitutional:?Energy level is good HEENT:?Sometimes has headaches Cardiovascular:?Rare chest pain Respiratory:?Breathing difficulty related to COPD Gastrointestinal:?No issues Genitourinary:?No difficulty urination. Musculoskeletal:?Always has back and joint pains. Neurological:?Dizziness and unseteadiness and tremor Psychiatric:?Anxiety and depression Endocrine:?No issues Hematologic/Lymphatic:?No easy bruising, bleeding, or lymphadenopathy. Integumentary (Skin):?No rash, lesions, itching, or color changes. Allergic/Immunologic:?No seasonal allergies, hives, or recurrent infections. Physical Exam Neuro Other: Mental Status: Alert and oriented to person, place, and time. Normal attention. Normal spontaneous speech, fluency, and comprehension. No obvious issues with mood and memory. Affect is appropriate. Cranial Nerves: CN II: Visual obrien full to confrontation, visual acuity intact. CN III, IV, : Pupils equal, round, reactive to light and accommodation. Extraocular movements are normal. CN V: Facial sensation is normal. CN VII: Facial movements symmetrical. CN VIII: Hearing intact to bedside conversation is normal. CN IX, X: Palate elevates symmetrically. CN XI: Shoulder shrug and head turn symmetrical. CN XII: Tongue midline without atrophy or fasciculations. Motor: Bulk and tone normal in all extremities. No significant muscle weakness in arms and legs. No drift. Reflexes: Deep tendon reflexes are 2+ in arms and knees, trace to absent in neck with flexor plantars Coordination: [id number] with mild bilateral hand tremor Gait and Station: Cautious with a walker Extrapyramidal: Full facial expressions and blinking. No rigidity. Movements are appropriate with mild bilateral hand postural and resting tremor or abnormality. Speech: Normal; no dysarthria or tremor. Assessment & Plan Assessment & Plan (1) Ataxia: Comment: CT brain WO at [facility] in Jan 2025: Mild cerebellar atrophy Code(s): R27.0 - Ataxia, unspecified Category: Medical (2) Tremor: Code(s): R25.1 - Tremor, unspecified Category: Medical Plan 69 years old woman with underlying history of COPD, arthritic pains, diagnosis of fibromyalgia, and insomnia was here with complaints of hand shaking and unsteadiness/dizziness. This was going on for about a year and progressively worsening. I noticed that she had a head CT done at [facility] in 2020 and then again in 2024, both revealing mild cerebellar atrophy. She denied any significant alcohol exposure. Her examination revealed mild mixed tremor affecting her hands and with slight hyperreflexia of knees. Main concern is a degenerative process affecting multiple systems. She might also have REM sleep behavior disorder as she is finding her bed messed up upon waking up. She was sleeping alone. An MRI of brain is requested. I might also consider a DaTSCAN to help with diagnosis. Orders: Orders MR head/brain wo con Today R25.1 - Tremor, unspecified, R27.0 - Ataxia, unspecified Coding Level of Care Code New Pt Level 4 (77918) Diagnoses Ataxia R27.0 Tremor R25.1
--- OUTSIDE RECORDS SUMMARY | 2025-06-02 14:11 | XMS_ITS | Clinical Summary ---
Author Organization [facility] Address [address] [facility] [address] [place] [address] Phone Care Team Providers Care Natural Resources Professor Name Role Phone Emani Dalton MD Primary Care Provider [phone] Allergies Active Allergy Reactions Criticality Noted Date [...] Devices Not on file Insurance MEDICARE REPLACEMENT [facility] MEDICARE REPLACEMENT Member Subscriber Plan / Payer (Ef fective 2019-Present) Name:Dorie Schafer Relation to Subscriber:Self Name:Dorie Schafer Payer ID:[id number] (NAIC) Type:Medicare [address] [place] [facility] MEDIC[facility] REPLACEMENT [facility] [place] [facility] MEDICARE REPLACEMENT [facility] Care Teams Natural Resources Professor Relationship Specialty Start Date End Date Emani Dalton MD [address] [place] [phone] PCP - General Internal Medicine 01/05/20 Additional Source Comments The information contained in this document represents components of the legal health record. It is not the complete legal health record.[facility]
--- OUTSIDE RECORDS SUMMARY | 2025-06-02 14:11 | XMS_ITS | Encounter Summary ---
Author Organization [facility] Address [address] [facility] [address] [place] [address] Phone Care Team Providers Care Finance And Administration Manager Name Role Phone Emani Dalton MD Primary Care Provider [phone] Encounter Details Date Type Department Care Team (Late st Contact Info) Description 01/05/2020 Transcribe Orders [address] [address] Emani Dalton MD [address] [place] [address] Chronic bronchitis, unspecified chronic bronchitis type (Primary [...] EDT) WBC 4.83 4.00 - 11.00 K/uL [facility] Comment:Note Reference Range updates to all CBC and Differential results. RBC 5.19 3.72 - 5.30 M/uL [facility] HGB 16.9(H) 11.4 - 15.9 g/dL [facility] Comment:Note updated Referen ce Ranges for all CBC and Differential results. HCT 49.2(H) 34.2 - 46.8 % [facility] PLT 216 140 - 430 K/uL [facility] MCV 94.8 78.0 - 97.0 fL [facility] MCH 32.6 25.0 - 33.0 pg [facility] MCHC 34.3 32.0 - 36.0 g/dL [facility] RDW 12.1 11.0 - 16.0 % [facility] MPV 11.2 8.4 - 12.8 fl [facility] NRBC 0.00 0 /100 WBCs [facility] ABSOLUTE NRBC 0.00 0 K/uL [facility] Blood 01/05/2020 8:01 AM EDT 01/05/2020 8:26 AM EDT us Emani Dalton MD LAB BLOOD BKR ORDERABLES Kathy l Result Performing Organization Address [facility]/ZIP Co de Phone Number [address] [address] * Ferritin (01/05/2020 8:01 AM EDT) FERRITIN 119 13 - 150 ug/L [facility] Blood 01/05/2020 8:01 AM EDT 01/05/2020 8:26 AM EDT us Emani Dalton MD LAB BLOOD BKR ORDERABLES Kathy l Result Performing Organization Address [facility] Co de Phone Number [address] [address] * Iron and iron binding capacity (01/05/2020 8:01 AM EDT) IRON 92 30 - 160 ug/dL [facility] IRON BINDING CAPACITY 339 228 - 428 ug/dL [facility] TRANSFERRIN SATURAT. 27 15 - 50 % [facility] Blood 01/05/2020 8:01 AM EDT 01/05/2020 8:26 AM EDT us Emani Dalton MD LAB BLOOD BKR ORDERABLES Kathy l Result Performing Organization Address City/[facility]/ZIP Co de Phone Number [address] [address] * TSH (01/05/2020 8:01 AM EDT) TSH 1.21 0.27 - 4.20 uIU/mL [facility] Blood 01/05/2020 8:01 AM EDT 01/05/2020 8:26 AM EDT us Emani Dalton MD LAB BLOOD BKR ORDERABLES Kathy l Result Performing Organization Address [facility] Co de Phone Number [address] [address] * Lipid panel (01/05/2020 8:01 AM EDT) HDL 51 mg/dL [facility] Comment: Interpretation <40 mg/dL: Low HDL cholesterol (major risk factor for CHD) Greater than or equal to 60 mg/dL: High HDL cholesterol ( negative risk factor for CHD) HDL - cholesterol is affected by a number of factors, e.g. smoking, excerise, hormones, sex and age. CHOLESTEROL 167 0 - 240 mg/dL [facility] TRIGLYCERIDES 93 30 - 160 mg/dL [facility] LDL 97 50 - 129 mg/dL [facility] Comment: LDL levels in terms of risk for coronary heart disease: <100 mg/dL: Optimal 100-129 mg/dL: Near or above optimal 130-159 mg/dL: Borderline high 160-189 mg/dL: High >190 mg/dL: Very High CARDIAC RISK RATIO 3.3 3.3 - 4.4 C [facility] Blood 01/05/2020 8:01 AM EDT 01/05/2020 8:26 AM EDT us Emani Dalton MD LAB BLOOD BKR ORDERABLES Kathy l Result Performing Organization Address [facility] Co de Phone Number [address] [address] * (ABNORMAL) Comprehensive metabolic panel (01/05/2020 8:01 AM EDT) SODIUM 137 133 - 146 mmol/L [facility] POTASSIUM 4.5 3.3 - 5.1 mmol/L [facility] CHLORIDE 103 96 - 108 mmol/L [facility] CO2 27 21 - 35 mmol/L [facility] BUN 12 6 - 19 mg/dL [facility] CREATININE 0.90 0.5 - 1.5 mg/dL [facility] GLUCOSE 102(H) 70 - 99 mg/dL [facility] ALBUMIN 4.2 3.9 - 4.8 g/dL [facility] TOTAL PROTEIN 7.6 6.5 - 8.0 g/dL [facility] CALCIUM 9.7 8.4 - 10.3 mg/dL [facility] ALKALINE PHOSPHATASE 66 39 - 117 U/L [facility] TOTAL BILIRUBIN 0.3 0.0 - 1.2 mg/dL [facility] AST 32 0 - 37 U/L [facility] ALT 12 0 - 40 U/L [facility] GLOBULIN 3.4 1 - 4.8 g/dL [facility] EGFR 69 >59 mL/min/1.7 3m2 [facility] Comment:Estimated glomerular filtration rate calculated using the CKD-EPI equation. ANION GAP 12 10 - 20 mmol/L [facility] Blood 01/05/2020 8:01 AM EDT 01/05/2020 8:26 AM EDT us Emani Dalton MD LAB BLOOD BKR ORDERABLES Kathy milla Result Performing Organization Address City/State/[facility] Co de Phone Number [address] [address] documented in this encounter Visit Diagnoses Diagnosis Chronic bronchitis, unspecified chronic bronchitis type- Primary documented in this encounter Care Teams Finance And Administration Manager Relationship Specialty Start Date End Date Emani Dalton MD [address] [place] [address] PCP - General Internal Medicine 01/05/20 documented as of this encounter Additional Source Comments The information contained in this document represents components of the legal health record. It is not the complete legal health record.[facility]
--- OUTSIDE RECORDS SUMMARY | 2025-06-02 14:12 | XMS_ITS | Encounter Summary ---
Author Organization [facility] Address [address] [facility] [address] [place] [address] Phone Care Team Providers Care Sorting Livestock Worker Name Role Phone Emani Dalton MD Primary Care Provider [phone] Encounter Details Date Type Department Care Team (Late st Contact Info) Description 11/25/2022 Procedure Pass [facility], Ct Scan - [address] [address] Social History Tobacco Use Types Packs/Day Years [...] 11:35 AM EDT Adri Wong RN * [facility] Suicide Severity Rating Scale (Screener/Recent Self-Report) Question [...] on filedocumented in this encounter Care Teams Sorting Livestock Worker Relationship Specialty Start Date End Date Emani Dalton MD [address] [place] [id number] PCP - General Internal Medicine 01/05/20 documented as of this encounter Additional Source Comments The information contained in this document represents components of the legal health record. It is not the complete legal health record.[facility]
== END 2025-06-02 12:00 | disposition home or self-care (01) ==
LOC: HO.HSM 11:40
PROVIDERS: PCP Internal Medicine; Visit Provider Psychiatry & Neurology Neurology
DX: R27.0 Ataxia, unspecified (principal); R25.1 Tremor, unspecified
CPT/HCPCS: 99204

== ENCOUNTER → 2025-06-02 11:39 | Outpatient (BNVA) | payer MEDICARE, OTHER, SELFPAY | PROVIDERS: PCP Internal Medicine; Visit Provider Psychiatry & Neurology Neurology | DX: R27.0 Ataxia, unspecified (principal); Z72.0 Tobacco use; R25.1 Tremor, unspecified | CPT/HCPCS: 99202 ==

== ENCOUNTER 2025-06-25 10:18 | Outpatient (REF) | payer MEDICARE, OTHER, SELFPAY ==
--- NOTE | ~2025-06-25 | CT_ITS ---
EXAMINATION: CT LUNG SCREENING HISTORY: F17.210 - Nicotine dependence, cigarettes, uncomplicated TECHNIQUE: Low dose axial images were obtained from the sternal notch to upper abdomen without IV contrast per standard departmental protocol. Sagittal and coronal reformatted images were also obtained and reviewed. One or more of the following techniques was used for dose reduction: Automated exposure control, adjustment of the mA and/or kV according to patient size, use of iterative reconstruction technique. DLP: 70 mGy-cm COMPARISON: Comparison is made with the prior examination dated 05/06/2024. FINDINGS: Lung nodules: Again seen is a 2 mm nodule in the right upper lobe (series 5, image 51). There is a tiny calcified granuloma in the right middle lobe (series 5, image 97). No new or suspicious pulmonary nodules are identified. Emphysema: mild Coronary Calcification: mild Aortic Arch Calcification: mild Potentially Significant Incidentals : none Additional Chest Findings: There is no pleural or pericardial effusion. No mediastinal or axillary lymphadenopathy is identified. There is a small hiatal hernia. Visualized upper abdomen: The visualized portions of the liver, spleen, and adrenals have an unremarkable unenhanced appearance. CT/CT lung screening IMPRESSION: No suspicious pulmonary nodules are identified. LUNG-RADS ASSESSMENT: Lung-RADS 2: Benign MANAGEMENT: Continue annual screening with LDCT in 12 months Category S: N/A Electronically signed by: Arnav Osborne MD 06/25/2025 10:57 AM [facility]
--- OUTSIDE RECORDS SUMMARY | 2025-06-25 10:22 | XMS_ITS | Clinical Summary ---
Author Organization [facility] Address [address] [facility] [address] [place] [address] Phone Care Team Providers Care Outdoor Studies Professor Name Role Phone Emani Dalton MD Primary Care Provider [phone] Allergies Active Allergy Reactions Criticality Noted Date [...] Devices Not on file Insurance MEDICARE REPLACEMENT [facility] MEDICARE REPLACEMENT Member Subscriber Plan / Payer (Ef fective 2019-Present) Name:Dorie Schafer Relation to Subscriber:Self Name:Dorie Schafer Payer ID:[id number] (NAIC) Type:Medicare [address] [facility] [facility] [place] [facility] MEDICARE REPLACEMENT [facility] [place] [facility] RE[place] [facility] MEDICARE REPLACEMENT [facility] Care Teams Outdoor Studies Professor Relationship Specialty Start Date End Date Emani Dalton MD [address] [place] [address] PCP - General Internal Medicine 01/05/20 Additional Source Comments The information contained in this document represents components of the legal health record. It is not the complete legal health record.[facility]
--- OUTSIDE RECORDS SUMMARY | 2025-06-25 10:22 | XMS_ITS | Encounter Summary ---
Author Organization [facility] Address [address] [facility] [address] [place] [address] Phone Care Team Providers Care Deburrer Name Role Phone Emani Dalton MD Primary Care Provider [phone] Encounter Details Date Type Department Care Team (Late st Contact Info) Description 01/05/2020 Transcribe Orders [address] [address] Emani Dalton MD [address] [place] [address] Chronic bronchitis, unspecified chronic bronchitis type (Primary [...] EDT) WBC 4.83 4.00 - 11.00 K/uL [facility] Comment:Note Reference Range updates to all CBC and Differential results. RBC 5.19 3.72 - 5.30 M/uL [facility] HGB 16.9(H) 11.4 - 15.9 g/dL [facility] Comment:Note updated Referen ce Ranges for all CBC and Differential results. HCT 49.2(H) 34.2 - 46.8 % [facility] PLT 216 140 - 430 K/uL [facility] MCV 94.8 78.0 - 97.0 fL [facility] MCH 32.6 25.0 - 33.0 pg [facility] MCHC 34.3 32.0 - 36.0 g/dL [facility] RDW 12.1 11.0 - 16.0 % [facility] MPV 11.2 8.4 - 12.8 fl [facility] NRBC 0.00 0 /100 WBCs [facility] ABSOLUTE NRBC 0.00 0 K/uL [facility] Blood 01/05/2020 8:01 AM EDT 01/05/2020 8:26 AM EDT us Emani Dalton MD LAB BLOOD BKR ORDERABLES Kathy l Result Performing Organization Address [facility]/ZIP Co de Phone Number [address] [address] * Ferritin (01/05/2020 8:01 AM EDT) FERRITIN 119 13 - 150 ug/L [facility] Blood 01/05/2020 8:01 AM EDT 01/05/2020 8:26 AM EDT us Emani Dalton MD LAB BLOOD BKR ORDERABLES Kathy l Result Performing Organization Address [facility] Co de Phone Number [address] [address] * Iron and iron binding capacity (01/05/2020 8:01 AM EDT) IRON 92 30 - 160 ug/dL [facility] IRON BINDING CAPACITY 339 228 - 428 ug/dL [facility] TRANSFERRIN SATURAT. 27 15 - 50 % [facility] Blood 01/05/2020 8:01 AM EDT 01/05/2020 8:26 AM EDT us Emani Dalton MD LAB BLOOD BKR ORDERABLES Kathy l Result Performing Organization Address City/[facility]/ZIP Co de Phone Number [address] [address] * TSH (01/05/2020 8:01 AM EDT) TSH 1.21 0.27 - 4.20 uIU/mL [facility] Blood 01/05/2020 8:01 AM EDT 01/05/2020 8:26 AM EDT us Emani Dalton MD LAB BLOOD BKR ORDERABLES Kathy l Result Performing Organization Address [facility] Co de Phone Number [address] [address] * Lipid panel (01/05/2020 8:01 AM EDT) HDL 51 mg/dL [facility] Comment: Interpretation <40 mg/dL: Low HDL cholesterol (major risk factor for CHD) Greater than or equal to 60 mg/dL: High HDL cholesterol ( negative risk factor for CHD) HDL - cholesterol is affected by a number of factors, e.g. smoking, excerise, hormones, sex and age. CHOLESTEROL 167 0 - 240 mg/dL [facility] TRIGLYCERIDES 93 30 - 160 mg/dL [facility] LDL 97 50 - 129 mg/dL [facility] Comment: LDL levels in terms of risk for coronary heart disease: <100 mg/dL: Optimal 100-129 mg/dL: Near or above optimal 130-159 mg/dL: Borderline high 160-189 mg/dL: High >190 mg/dL: Very High CARDIAC RISK RATIO 3.3 3.3 - 4.4 C [facility] Blood 01/05/2020 8:01 AM EDT 01/05/2020 8:26 AM EDT us Emani Dalton MD LAB BLOOD BKR ORDERABLES Kathy l Result Performing Organization Address [facility] Co de Phone Number [address] [address] * (ABNORMAL) Comprehensive metabolic panel (01/05/2020 8:01 AM EDT) SODIUM 137 133 - 146 mmol/L [facility] POTASSIUM 4.5 3.3 - 5.1 mmol/L [facility] CHLORIDE 103 96 - 108 mmol/L [facility] CO2 27 21 - 35 mmol/L [facility] BUN 12 6 - 19 mg/dL [facility] CREATININE 0.90 0.5 - 1.5 mg/dL [facility] GLUCOSE 102(H) 70 - 99 mg/dL [facility] ALBUMIN 4.2 3.9 - 4.8 g/dL [facility] TOTAL PROTEIN 7.6 6.5 - 8.0 g/dL [facility] CALCIUM 9.7 8.4 - 10.3 mg/dL [facility] ALKALINE PHOSPHATASE 66 39 - 117 U/L [facility] TOTAL BILIRUBIN 0.3 0.0 - 1.2 mg/dL [facility] AST 32 0 - 37 U/L [facility] ALT 12 0 - 40 U/L [facility] GLOBULIN 3.4 1 - 4.8 g/dL [facility] EGFR 69 >59 mL/min/1.7 3m2 [facility] Comment:Estimated glomerular filtration rate calculated using the CKD-EPI equation. ANION GAP 12 10 - 20 mmol/L [facility] Blood 01/05/2020 8:01 AM EDT 01/05/2020 8:26 AM EDT us Emnai Dalton MD LAB BLOOD BKR ORDERABLES Kathy milla Result Performing Organization Address City/State/[facility] Co de Phone Number [address] [address] documented in this encounter Visit Diagnoses Diagnosis Chronic bronchitis, unspecified chronic bronchitis type- Primary documented in this encounter Care Teams Deburrer Relationship Specialty Start Date End Date Emani Dalton MD [address] [place] [address] PCP - General Internal Medicine 01/05/20 documented as of this encounter Additional Source Comments The information contained in this document represents components of the legal health record. It is not the complete legal health record.[facility]
--- OUTSIDE RECORDS SUMMARY | 2025-06-25 10:22 | XMS_ITS | Encounter Summary ---
Author Organization [facility] Address [address] [facility] [address] [place] [address] Phone Care Team Providers Care Seam Stayer Name Role Phone Emani Dalton MD Primary Care Provider [phone] Encounter Details Date Type Department Care Team (Late st Contact Info) Description 11/25/2022 Procedure Pass [facility], Ct Scan - [address] [address] Social History Tobacco Use Types Packs/Day Years [...] on filedocumented in this encounter Care Teams Seam Stayer Relationship Specialty Start Date End Date Emani Dalton MD [address] [place] [id number] PCP - General Internal Medicine 01/05/20 documented as of this encounter Additional Source Comments The information contained in this document represents components of the legal health record. It is not the complete legal health record.[facility]
== END 2025-06-25 10:19 | disposition home or self-care (01) ==
LOC: HO.CT 10:18
PROVIDERS: PCP Internal Medicine; Visit Provider Physician Assistant Medical
DX: F17.210 Nicotine dependence, cigarettes, uncomplicated (principal)
CPT/HCPCS: 71271

== ENCOUNTER → 2025-06-25 10:19 | Outpatient (BNV) | payer MEDICARE, SELFPAY | PROVIDERS: PCP Internal Medicine; Visit Provider Radiology Diagnostic Radiology | DX: F17.210 Nicotine dependence, cigarettes, uncomplicated (principal) | CPT/HCPCS: 71271 ==